=== PATIENT | female | born 1970 | race Caucasian/White ===

== ENCOUNTER 2024-09-11 21:38 | Emergency (ER) | payer OTHER, SELFPAY ==
--- NOTE | ~2024-09-11 | CT_ITS ---
CLINICAL HISTORY: sudden onset dizziness CT head without contrast Comparison: None Findings: No intracranial mass, midline shift, hydrocephalus, or acute hemorrhage. Visualized paranasal sinuses and mastoid air cells appear clear. No acute skull fracture. 6 mm radiopaque density identified over the anterior aspect of the left globe. Punctate 1 mm radiopaque density identified over the soft tissues anteriorly at the midline near the frontonasal suture. Impression: 1. No acute intracranial abnormality. No acute intracranial hemorrhage. CT angiography head and neck with contrast. 3-D postprocessing Comparison: None Findings: The visualized portions of the bilateral common carotid arteries and cervical portions of the internal carotid arteries appear patent without hemodynamically significant the origin of the right common carotid artery is obscured by artifact related to dense adjacent venous contrast. stenosis. The vertebral arteries appear patent bilaterally at the level of the neck. No carotid or vertebral dissection is seen. There is no evidence of vasculitis. Motion limited evaluation of the bilateral lungs. Subtle reticulonodular densities within the right upper lobe are not excluded. The intracranial vertebrobasilar system appears patent. Cerebellar and posterior cerebral arteries are intact. Intracranial internal carotid arteries appear patent. Middle/anterior cerebral arteries also appear patent. No aneurysms or abrupt cutoffs visualized. Impression: 1. Patent bilateral carotid and vertebral arterial systems at the level of the neck without hemodynamically significant stenosis. 2. Patent anterior and posterior intracranial arterial circulation. No large vessel occlusion. This document has been electronically signed by: Andrew Ham MD on 09/12/2024 00:24:41
[2024-09-11 21:51] VITALS: BP 130/70; BP 91/60; PULSE 90; PULSE 93; RESP 18; TEMP 36.8; O2SAT 100; O2SAT 94; BMI 39.9
[2024-09-11 22:04] LABS: MANUAL DIFF FLAG NO
--- NOTE | 2024-09-11 22:04 | ECG_ITS ---
Test Reason : SYNCOPE Blood Pressure : */* mmHG Vent. Rate : 85 BPM Atrial Rate : 85 BPM P-R Int : 158 ms QRS Dur : 86 ms QT Int : 400 ms P-R-T Axes : 34 38 35 degrees QTcB Int : 476 ms Normal sinus rhythm Cannot rule out Anterior infarct , age undetermined Nonspecific ST and T wave abnormality Abnormal ECG No previous ECGs available Referred By: Myrtle Marks Electronically Signed By: FABIÁN ACEVEDO
[2024-09-11 22:06] LABS: Basophils Percent Auto 0.2 % (0-2); Eosinophils Percent Auto 0.4 % (0-4); Hematocrit 38.5 % (37.0-47.0); Imm Gran Abs Auto 0.03 X10*3/uL (0.00-0.03); Imm Gran Pct Auto 0.3 % (0.0-0.4); Lymphocytes Absolute Auto 1.4 X10*3/uL (1.2-4.9); Lymphocytes Percent Auto 14.7 % (20-40); Mean Corpuscular HGB Conc 33.8 g/dl (31.0-35.0); Mean Corpuscular Volume 82.8 fL (80.0-98.0); Mean Platelet Volume 9.5 fL (9.4-12.3); Monocytes Absolute Auto 0.5 X10*3/uL (0.1-1.2); Monocytes Percent Auto 4.9 % (2-11); Neutrophils Absolute Auto 7.7 x10*3/uL (2.0-8.3); Neutrophils Percent Auto 79.5 % (45-73); Platelet Count 356 X10*3/uL (160-400); Red Blood Count 4.65 X10*6/uL (4.20-5.50); Red Cell Distribution Width 13.7 % (11.0-16.0); White Blood Count 9.6 X10*3/uL (4.8-10.8)
[2024-09-11] MEDS: ondansetron HCL 4 MG/2 ML VIAL IVPUSH (22:06)
[2024-09-11] MEDS: 0.9 % Sodium Chloride 1,000 ML 999 ML IVCONT (22:08)
[2024-09-11 22:19] LABS: Alanine Aminotransferase 20 U/L (0-31); Albumin Level 4.2 g/dL (3.5-5.0); Alkaline Phosphatase 88 U/L (39-117); Anion Gap 14 (12-20); Aspartate Amino Transferase 22 U/L (5-31); Bilirubin Total 0.3 mg/dL (0.0-1.0); Blood Urea Nitrogen 19 mg/dL (9-16); Calcium 9.1 mg/dL (8.4-10.2); Carbon Dioxide 20 mmol/L (22-29); Chloride 109 mmol/L (96-108); Creatinine Clr Calc Pharmacy 90.8; Estimated Glomerular Filt Rate > 60; Glucose Random 161 mg/dL (60-115); Lipase 21 U/L (8-78); Magnesium 2.1 mg/dL (1.6-2.6); Sodium 139 mmol/L (135-145)
--- NOTE | 2024-09-11 22:22 | ED.DIZZY ---
HPI - Dizziness General Chief Complaint: Syncope Stated Complaint: syncope, loc, vomiting, no thinners Time Seen by Provider: 09/11/24 21:56 Source: patient and EMS Mode of arrival: EMS Limitations: no limitations History of Present Illness ED Provider: Dr. Myrtle Marks HPI Narrative: Patient comes to the emergency room complaining of a syncopal/near syncopal episode. Patient states that she was in a restaurant with family. Patient states that she was cutting the cake for everybody, when she has sudden onset of dizziness, nausea, lightheadedness. Patient states that she started becoming very nauseous, she is not sure if she passed out. Patient states that she remembers things but thought that she was on a dream but was not sure. Patient states it was a very strange sensation. Patient states that she vomited at a restaurant, was very nauseous throughout the right to the hospital. Started vomiting again on arrival. Patient states that she was able to get up from the floor and walked towards the stretcher and get on it. Patient denies any headache, denies any blood thinners, denies falling on her head. Patient states that she takes medication for cardiomyopathy status which has resolved. Patient states that other than that she has no other past medical history. Patient denies any fever or chills. Denies any exposure to sick people to her knowledge Related Data Allergies Allergy/AdvReac Type Severity Reaction Status Date / Time No Known Allergies Allergy Verified 09/11/24 21:55 Review of Systems Review of Systems: Constitutional : No Weight loss, No Fever, No Chills, No Night Sweats, No Fatigue, No Malaise ENT/Mouth : No Hearing loss, No Ear Pain, No Nasal Congestion, No Sinus Pain, No Hoarseness, No sore throat, No Rhinorrhea, No Swallowing Difficulty Eyes: No Eye Pain, No Swelling, No Redness, No Foreign Body, No Discharge, No Vision Changes Cardiovascular : No Chest Pain, No SOB, No Dyspnea on Exertion, No Orthopnea, No Edema, No Palpitations Respiratory : No Cough, No Sputum, No Wheezing, No Smoke Exposure, No Dyspnea Gastrointestinal : Denies nausea or vomiting, No Diarrhea, No Constipation, No abdominal Pain, No Hematochezia, No Melena Genitourinary : no irregular bleeding, No Dysuria, No Urinary Frequency, No Hematuria, No Urinary Incontinence, No Urgency, No Flank Pain, No Urinary Flow Changes, No Hesitancy Musculoskeletal : No joint pain, No Myalgias, No Joint Swelling Skin : No Skin Lesions, No rash Neuro : No Weakness, No Numbness, No Paresthesias, complaining of a syncopal/near syncopal episode, No Dizziness, No Headache Psych : No Anxiety/Panic, No Depression, No SI/HI/AH/VH, No Social Issues, Heme/Lymph: No Bruising, No Bleeding,No Lymphadenopathy Endocrine : No Polyuria, No Polydipsia, No Temperature Intolerance [facility] Social History Social History Alcohol intake: current Alcohol intake frequency: holidays/special occasions only Smoked in Last 30 Days: No Use of substances other than those prescribed or required for medical reasons: No Advance Directives: Yes Advance Directives Information Provided: No Advance Directives on File: No Do you have a plan to hurt others: No Plan Physical Exam Vital Signs: Vital Signs: Last Vital Signs Temp 98.0 F 09/11/24 23:54 Pulse 75 09/11/24 23:54 Resp 16 09/11/24 23:54 BP 114/64 09/11/24 23:54 Pulse Ox 96 09/11/24 23:54 O2 Del Method Room Air 09/11/24 23:54 BMI result Body Mass Index 39.9 Const: Other: Appearance: Alert. Oriented X3. No acute distress. Eyes: Pupils equal, round and reactive to light. ENT: Pharynx normal. Neck: Normal inspection. Neck supple. No lymph nodes noted. No crepitus CVS: Normal heart rate and rhythm. Pulses normal. Normal S1 and S2 Respiratory: No respiratory distress. Breath sounds normal. No Wheezing. No rales Abdomen: Soft and nontender. No rigidity. No distention. Skin: Skin warm and dry. Normal skin color. Normal skin turgor. Extremities: No lower extremity edema. No Lacerations. No Rash Neuro: Oriented X 3. No motor deficit. No sensory deficit. Moving all extremities. No slurred speech. CN 2 through 12 grossly intact Psych: calm, cooperative, normal affect Course Course Course Narrative: On arrival, patient actively vomiting. Patient receiving IV fluids and Zofran, shortly after patient feeling much better. All of patient's labs and imaging pending Medications Administered Discontinued Medications Generic Name Dose Route Start Last Admin Trade Name Freq PRN Reason Stop Dose Admin Sodium Chloride 1,000 mls @ 999 mls/hr 09/11/24 22:00 09/11/24 23:37 Ns IVCONT 09/11/24 23:00 Infused .Q1H1M ONE Infusion Iohexol 75 ml 09/11/24 23:29 09/11/24 23:30 Iohexol 350 Mg/Ml 100 Ml Infus..Btl IV 09/11/24 23:30 75 ml ONCE ONE Administration Meclizine HCl 50 mg 09/11/24 22:23 09/11/24 23:36 Meclizine Hcl 25 Mg Tablet PO 09/11/24 22:24 50 mg ONCE ONE Administration Ondansetron HCl 4 mg 09/11/24 21:59 09/11/24 22:06 Ondansetron Hcl 4 Mg/2 Ml Vial IVPUSH 09/11/24 22:00 4 mg ONCE ONE Administration Medical Decision Making Medical Decision Making [facility] Narrative: My interpretation of EKG: Sinus rhythm, heart rate 85, no ST segment depression or elevation, no T-wave inversion, QTC 76 My interpretation of hematology: No obvious abnormality. Normal white blood cell count hemoglobin hematocrit and platelets, D-dimer negative, chemistry shows a slightly decreased bicarb, normal LFTs, ETOH negative, serology negative for influenza COVID and RSV. Patient's troponin x2 negative, urinalysis negative for UTI, U tox positive for THC, negative for alcohol CTA scan of the brain and neck negative Orthostatic vitals negative Patient was able to walk around the emergency room, steady gait, asymptomatic. When patient came in, patient's blood pressure was in 90s, patient likely had a vasovagal event. I discussed with the patient to check her blood pressure at home and either in a pharmacy or a [facility]. It is possible that her blood pressure medications might be a bit on the higher side. Patient states that she usually has a good pressure. At this time, we will not change any of her meds. Patient's blood pressure 114/64, pulse 75, respirations 16, oxygen saturation 96% on room air Differential Diagnosis Differential Diagnoses: The differential diagnosis associated with the presentation includes (Vasovagal syncope, PE, ACS) Admission/Observation Consideration of admission/observation: Escalation of care including admission/observation considered Lab Data [facility] Lab Attestation statement: I reviewed the patient's lab results. 09/11/24 21:59 09/11/24 21:59 Labs: Lab Results 09/11/24 09/11/24 09/11/24 Range/Units 21:59 22:26 22:27 WBC 9.6 (4.8-10.8) X10*3/uL RBC 4.65 (4.20-5.50) X10*6/uL Hgb 13.0 (12.0-16.0) g/dl Hct 38.5 (37.0-47.0) % MCV 82.8 (80.0-98.0) fL MCH 28.0 (27.0-33.0) pg MCHC 33.8 (31.0-35.0) g/dl RDW 13.7 (11.0-16.0) % Plt Count 356 (160-400) X10*3/uL MPV 9.5 (9.4-12.3) fL Immature Gran % (Auto) 0.3 (0.0-0.4) % Neut % (Auto) 79.5 H (45-73) % Lymph % (Auto) 14.7 L (20-40) % [place] % (Auto) 4.9 (2-11) % Eos % (Auto) 0.4 (0-4) % Baso % (Auto) 0.2 (0-2) % Lymph # (Auto) 1.4 (1.2-4.9) X10*3/uL [place] # (Auto) 0.5 (0.1-1.2) X10*3/uL Eos # (Auto) 0.0 (0.0-0.4) X10*3/uL Baso # (Auto) 0.0 (0.0-0.2) X10*3/uL Abs Immat Gran (auto) 0.03 (0.00-0.03) X10*3/uL Absolute Neuts (auto) 7.7 (2.0-8.3) x10*3/uL Absolute Nucleated RBC 0.000 (0.0-0.012) X10*3/uL Nucleated RBC % (auto) 0.0 (0.0-0.2) /100WBC PT 10.8 L (10.9-12.4) SEC INR 0.9 (0.9-1.1) D-Dimer High Sensitivty 178 NG/ML Sodium 139 (135-145) mmol/L Potassium 4.0 (3.3-5.1) mmol/L Chloride 109 H (96-108) mmol/L Carbon Dioxide 20 L (22-29) mmol/L Anion Gap 14 (12-20) BUN 19 H (9-16) mg/dL Creatinine 0.79 (0.5-1.4) mg/dL Estim Creat Clear Calc 90.8 Estimated GFR > 60 Random Glucose 161 H (60-115) mg/dL Calcium 9.1 (8.4-10.2) mg/dL Magnesium 2.1 (1.6-2.6) mg/dL Total Bilirubin 0.3 (0.0-1.0) mg/dL AST 22 (5-31) U/L ALT 20 (0-31) U/L Alkaline Phosphatase 88 (39-117) U/L Troponin I High Sens < 2.7 (<3.5-17.0) ng/L Total Protein 8.0 (6.5-8.0) g/dL Albumin 4.2 (3.5-5.0) g/dL Lipase 21 (8-78) U/L Urine Color Urine Appearance Urine pH (5.0-9.0) Ur Specific [place] (1.005-1.025) Urine Protein (Neg-Trace) mg/dL Urine Glucose (UA) (Negative) mg/dL Urine Ketones (Negative) mg/dL Urine Blood (Negative) Urine Nitrite (Negative) Ur Leukocyte Esterase (Negative) Urine RBC (0-2) /HPF Urine WBC (0-5) /HPF Ur Squamous Epith Cells (0-2) /HPF Urine Bacteria (None Seen) Hyaline Casts (0-2) /LPF Urine Opiates Screen (Not Detect) Ur Buprenorphine Scrn (Not Detect) ng/mL Ur Oxycodone Screen (Not Detect) ng/mL Urine Methadone Screen (Not Detect) ng/mL Urine Fentanyl Screen (Not Detect) Ur Barbiturates Screen (Not Detect) Ur Phencyclidine Scrn (Not Detect) Ur Amphetamines Screen (Not Detect) U Benzodiazepines Scrn (Not Detect) Urine Cocaine Screen (Not Detect) U Marijuana (THC) Screen (Not Detect) Ethyl Alcohol < 10 mg/dL Influenza Type A (PCR) NEGATIVE (Negative) Influenza Type B (PCR) NEGATIVE (Negative) RSV RNA Qual (PCR) NEGATIVE (Negative) SARS-CoV-2 RNA (RT-PCR) NEGATIVE (Negative) 09/11/24 Range/Units 22:57 WBC (4.8-10.8) X10*3/uL RBC (4.20-5.50) X10*6/uL Hgb (12.0-16.0) g/dl Hct (37.0-47.0) % MCV (80.0-98.0) fL MCH (27.0-33.0) pg MCHC (31.0-35.0) g/dl RDW (11.0-16.0) % Plt Count (160-400) X10*3/uL MPV (9.4-12.3) fL Immature Gran % (Auto) (0.0-0.4) % Neut % (Auto) (45-73) % Lymph % (Auto) (20-40) % [place] % (Auto) (2-11) % Eos % (Auto) (0-4) % Baso % (Auto) (0-2) % Lymph # (Auto) (1.2-4.9) X10*3/uL [place] # (Auto) (0.1-1.2) X10*3/uL Eos # (Auto) (0.0-0.4) X10*3/uL Baso # (Auto) (0.0-0.2) X10*3/uL Abs Immat Gran (auto) (0.00-0.03) X10*3/uL Absolute Neuts (auto) (2.0-8.3) x10*3/uL Absolute Nucleated RBC (0.0-0.012) X10*3/uL Nucleated RBC % (auto) (0.0-0.2) /100WBC PT (10.9-12.4) SEC INR (0.9-1.1) D-Dimer High Sensitivty NG/ML Sodium (135-145) mmol/L Potassium (3.3-5.1) mmol/L Chloride (96-108) mmol/L Carbon Dioxide (22-29) mmol/L Anion Gap (12-20) BUN (9-16) mg/dL Creatinine (0.5-1.4) mg/dL Estim Creat Clear Calc Estimated GFR Random Glucose (60-115) mg/dL Calcium (8.4-10.2) mg/dL Magnesium (1.6-2.6) mg/dL Total Bilirubin (0.0-1.0) mg/dL AST (5-31) U/L ALT (0-31) U/L Alkaline Phosphatase (39-117) U/L Troponin I High Sens (<3.5-17.0) ng/L Total Protein (6.5-8.0) g/dL Albumin (3.5-5.0) g/dL Lipase (8-78) U/L Urine Color Yellow Urine Appearance Clear Urine pH 5.5 (5.0-9.0) Ur Specific [place] 1.025 (1.005-1.025) Urine Protein 30 (1+) H (Neg-Trace) mg/dL Urine Glucose (UA) Negative (Negative) mg/dL Urine Ketones Trace (Negative) mg/dL Urine Blood Negative (Negative) Urine Nitrite Negative (Negative) Ur Leukocyte Esterase Moderate (2+) H (Negative) Urine RBC 0-2 (0-2) /HPF Urine WBC 6-10 (0-5) /HPF Ur Squamous Epith Cells 3-5 (0-2) /HPF Urine Bacteria Trace (None Seen) Hyaline Casts 0-2 (0-2) /LPF Urine Opiates Screen Not Detected (Not Detect) Ur Buprenorphine Scrn Not Detected (Not Detect) ng/mL Ur Oxycodone Screen Not Detected (Not Detect) ng/mL Urine Methadone Screen Not Detected (Not Detect) ng/mL Urine Fentanyl Screen Not Detected (Not Detect) Ur Barbiturates Screen Not Detected (Not Detect) Ur Phencyclidine Scrn Not Detected (Not Detect) Ur Amphetamines Screen Not Detected (Not Detect) U Benzodiazepines Scrn Not Detected (Not Detect) Urine Cocaine Screen Not Detected (Not Detect) U Marijuana (THC) Screen POSITIVE H (Not Detect) Ethyl Alcohol mg/dL Influenza Type A (PCR) (Negative) Influenza Type B (PCR) (Negative) RSV RNA Qual (PCR) (Negative) SARS-CoV-2 RNA (RT-PCR) (Negative) Independent Interpretation I performed an independent interpretation of an: CT Scan Radiology Impression Discussion of test interpretation with radiology: I have reviewed the radiologist's reading. Radiologist Impression: The visualized portions of the bilateral common carotid arteries and cervical portions of the internal carotid arteries appear patent without hemodynamically significant the origin of the right common carotid artery is obscured by artifact related to dense adjacent venous contrast. stenosis. The vertebral arteries appear patent bilaterally at the level of the neck. No carotid or vertebral dissection is seen. There is no evidence of vasculitis. Motion limited evaluation of the bilateral lungs. Subtle reticulonodular densities within the right upper lobe are not excluded. The intracranial vertebrobasilar system appears patent. Cerebellar and posterior cerebral arteries are intact. Intracranial internal carotid arteries appear patent. Middle/anterior cerebral arteries also appear patent. No aneurysms or abrupt cutoffs visualized. Impression: 1. Patent bilateral carotid and vertebral arterial systems at the level of the neck without hemodynamically significant stenosis. 2. Patent anterior and posterior intracranial arterial circulation. No large vessel occlusion. Independent Historian Clinical information obtained from an independent historian. History obtained from or confirmed by: EMS Critical Care Time Critical Care Time Critical Care Time: Yes Total Critical Care Time: 60 Attestation: I have personally provided critical care time. Time includes review of lab data, radiology results, discussion with consultants, and monitoring for potential decompensation. Intervention performed as documented. Discharge Plan Discharge Clinical Impression: Vasovagal syncope Patient Disposition: Home, Self-Care Instructions: Near Syncope (ED) Additional Instructions: Please follow-up with your primary care physician tomorrow. If you have any worsening or new symptoms, please return to the emergency room or call 911 Print Language: Azeri
[2024-09-11 22:42] LABS: Influenza A PCR NEGATIVE (Negative); Influenza B PCR NEGATIVE (Negative); Resp Syncy Virus RNA Qual PCR NEGATIVE (Negative); SARS COV2 PCR INHOUSE NEGATIVE (Negative)
[2024-09-11 22:45] LABS: Ethanol < 10 mg/dL
[2024-09-11 22:55] LABS: D Dimer High Sensitivity 178 NG/ML
[2024-09-11 22:55] LABS: INTERNATIONAL NORM RATIO 0.9 (0.9-1.1); Prothrombin Time 10.8 SEC (10.9-12.4)
--- NOTE | 2024-09-11 23:02 | MHC.EDTECH ---
pt ambulated to and from bathroom with a steady gait and no assistance needed
[2024-09-11 23:03] LABS: Appearance Urine Clear; Color Urine Yellow; Glucose Urine UA Negative (Negative); Leukocyte Esterase Urine Moderate (2+) (Negative); Nitrite Urine Negative (Negative); PH 5.5 (5.0-9.0); Specific Gravity - Urine 1.025 (1.005-1.025); UMIC TRIGGER UACC YES; Urine Blood Negative (Negative); Urine Ketones Trace mg/dL (Negative); Urine Protein 30 (1+) mg/dL (Neg-Trace)
[2024-09-11 23:05] VITALS: BP 113/60; PULSE 77
[2024-09-11 23:06] VITALS: BP 121/63; PULSE 80
[2024-09-11 23:07] VITALS: BP 117/68; PULSE 84
[2024-09-11 23:12] LABS: Amphetamine Screen Urine Not Detected (Not Detect); Barbiturates, Urine Not Detected (Not Detect); Benzodiazepines Screen Urine Not Detected (Not Detect); Buprenorphine Scr Not Detected (Not Detect); Cannabinoid Screen Urine POSITIVE (Not Detect); Cocaine Screen Urine Not Detected (Not Detect); Fentanyl, urine Not Detected (Not Detect); Methadone Screen, Urine Not Detected (Not Detect); Opiate Screen Urine Not Detected (Not Detect); Oxycodone Screen Urine Not Detected (Not Detect); Phencyclidine Screen Urine Not Detected (Not Detect)
[2024-09-11 23:21] LABS: Bacteria Urine Trace (None Seen); Hyaline Casts Urine 0-2 /LPF (0-2); RBC Urine 0-2 /HPF (0-2); UACC Culture Trigger YES
[2024-09-11] MEDS: iohexoL 350 MG/ML 100 ML INFUS..BTL 75 ML IV (23:30)
[2024-09-11] MEDS: Meclizine HCl 25 MG TABLET 50 MG PO (23:36)
[2024-09-11 23:54] VITALS: BP 114/64; PULSE 75; RESP 16; TEMP 36.7; O2SAT 96
--- NOTE | 2024-09-11 23:55 | MHC.EDTECH ---
This pct assumed care of Patient at 2315,vitals taken ,Patient just came back from bathroom ,no apparent distress noted ,Plan of care continue .
[2024-09-12 01:40] LABS: Troponin-I High Sensitivity < 2.7 ng/L (<3.5-17.0)
[2024-09-12 02:16] VITALS: BP 135/55; PULSE 75; RESP 20; TEMP 37.7; O2SAT 95
[2024-09-12 02:40] VITALS: BP 135/55; PULSE 75; RESP 20; TEMP 37.4; O2SAT 95
[2024-09-12] MEDS: Prochlorperazine Edisylate 10 MG/2 ML VIAL IVPUSH (02:43)
== END 2024-09-12 02:45 | disposition home or self-care (01) ==
PROVIDERS: Emergency Provider Emergency Medicine; PCP Internal Medicine
DX: R55 Syncope and collapse (principal); Z03.818 Encounter for observation for suspected exposure to other biological agents ruled out; R11.2 Nausea with vomiting, unspecified; Z79.899 Other long term (current) drug therapy
CPT/HCPCS: 0241U; 36415; 70496; 70498; 80053; 80307; 81001; 83690; 83735; 84484; 85025; 85379; 85610; 87086; 87147; 93005; 96361; 96374; 96375; 99285; J0737; J2405; Q9967

== ENCOUNTER → 2024-09-11 22:04 | Outpatient (BNV) | payer OTHER, SELFPAY | PROVIDERS: Emergency Provider Emergency Medicine; PCP Internal Medicine; Visit Provider Internal Medicine | DX: R94.31 Abnormal electrocardiogram [ECG] [EKG] (principal); R55 Syncope and collapse | CPT/HCPCS: 93010 ==

== ENCOUNTER → 2024-09-11 22:23 | Outpatient (BNV) | payer OTHER, SELFPAY | PROVIDERS: Emergency Provider Emergency Medicine; PCP Internal Medicine; Visit Provider Radiology Diagnostic Radiology | DX: R42 Dizziness and giddiness (principal) | CPT/HCPCS: 70496; 70498 ==

== ENCOUNTER 2025-04-07 14:18 | Outpatient (AMB) | payer OTHER, SELFPAY ==
--- OUTSIDE RECORDS SUMMARY | 2025-04-07 18:03 | XMS_ITS | Clinical Summary ---
Author Organization [facility] Address [address] [facility] [address] [place] [id number] Phone Care Team Providers Care Tube Fitter Name Role Phone Keya Sage MD Unavailable [phone] Shemar Mancia PA-C Primary Care Provider [phone] Allergies No known active allergies Medications levonorgestreL (MIRENA) 21 mcg/24 hr (8 yrs) 52 mg intrauterine device 1 Device by Intrauterine route. Placed 03/02/[address] Betty Bowles Active olmesartan (BENICAR) 20 mg tabletIndication s:Medication refill TAKE 1 TABLET BY MOUTH EVERY DAY 90 tablet 3 5 Active metoprolol succinate (TOPROL-XL) 25 MG 24 hr tabletIndication s:Medication refill TAKE 1 TABLET BY MOUTH EVERY DAY 90 tablet 3 5 Active Active Problems Problem Noted Date Diagnosed Date Liver lesion 09/17/2024 Vasovagal syncope 09/17/2024 Tinnitus of both ears 09/17/2024 Encounter for weight management 09/17/2024 Gastroesophageal reflux disease without esophagi tis 03/10/2020 Hypertension 06/30/2019 Assessment & Plan (07/05/2022 11:09 AM EST): Her blood pressure is well controlled at 118/70 she will continue her metoprolol and olmesartan and get her renal panel done. Weekly Lung nodule 11/24/2018 Assessment & Plan (10/29/2024 9:40 AM EDT): 54-year-old never smoker with no significant risk factors or exposure history with approximately 7 years of known incidental multiple pulmonary nodules. Largest nodule reported in [address] last month with right lower lobe nodule which most certainly appears to be an intraparenchymal lymph node, measured at 7 mm. Whether this represents the same nodule and growth or new finding is unclear. Prior images are not available. I reassured her that all of the findings on the current CT including the atelectasis are all benign findings. None of her nodules demonstrate any significant risky characteristics. RECOMMENDATIONS: Request imaging from May [address] [facility]. If on comparison current nodules are essentially unchanged, no further follow-up is required. If no available comparisons, a repeat CT is warranted. The largest nodule measured is 7 cm is clearly an intraparenchymal lymph node which is a benign finding. And therefore a 12-month follow-up CT would therefore be reasonable. Sanjana agrees with the current approach. I will reach out to her after receiving the comparison films and if indicated, can always cancel the follow-up CT and visit. Mixed hyperlipidemia 11/24/2018 Anatomical narrow angle glaucoma 11/24/2018 Cardiomyopathy, unspecified 03/18/2018 Assessment & Plan (07/05/2022 11:08 AM EST): Reviewed the record and it always stays in nonischemic cardiomyopathy. I discussed with her and decided to proceed with a myocardial perfusion imaging just to make sure she does not have any coronary artery disease. Resolved Problems Problem Noted Date Diagnosed Date Resolved Date Breakthrough bleeding associ ated with intrauterine device (IUD) 08/24/2024 09/17/2024 Assessment & Plan (08/24/2024 4:33 PM EST): -Reviewed possible etiologies of breakthrough bleeding with IUD in place including atrophy, endometrial or endocervical polyp, and premalignancy or malignancy of the endometrium or cervix. -TVUS ordered to evaluate endometrial stripe. -Pap neg/neg 2019. No cervical pathology visualized today. -If no further workup is indicated, I will call with results. If endometrial sampling is indicated, RTC for discussion and procedure. -Counseled that even if no further workup is indicated at this time, she should call with persistent bleeding as further evaluation would be warranted. Vulvar burning 03/26/2024 09/17/2024 Overview (03/26/2024): When in contact with urine only Assessment & Plan (03/26/2024 4:10 PM EDT): Feeling better with the antifungal treatment, so I recommend liberal application of a layer of Vaseline petroleum jelly or something similar prior to voiding, hold labia open so urine does not come into contact with skin. Expect this to resolve within a few days with treatment of suspected yeast infection Abnormal uterine bleeding du e to endometrial polyp 03/02/2022 05/10/2023 Family history of cancer 03/02/2022 Overview (03/02/2022): Mother with uterine, colon, breast cancer Irregular bleeding 01/09/2022 Assessment & Plan (01/09/2022 11:52 AM EDT): We discussed history of current episode of prolonged vaginal bleeding and possible differential diagnoses including perimenopause, structural reasons such as fibroids/polyps, thyroid/pituitary disorders, endometrial hyperplasia/malignancy. Will check TSH/prl/SHG. Sanjana has annual coming up in February with Dr. Sage and was planning to request that Mirena be replaced as she is still nervous about . We discussed that though is unlikely Mirena may be appropriate strategy to manage prolonged bleeding if uterine pathology is ruled out. Hiatal hernia 03/10/2020 09/17/2024 Diverticulosis 03/10/2020 09/17/2024 Right upper quadrant abdominal pain 10/02/2019 05/10/2023 Assessment & Plan (10/02/2019 1:01 PM EDT): Will f/u with Dr. Valente's office regarding need for sooner consult and evaluation given persistent RUQ pain x 7 mo. Liver mass 11/24/2018 09/17/2024 Uses intrauterine device for control 12/25/2017 07/20/2021 Overview (12/25/2017): Dexter 06/2015 Assessment & Plan (10/02/2019 1:00 PM EDT): Consider leaving Dexter in for 7 years given contraceptive effectiveness; will discuss with MUSHROOM GROWING SUPERVISOR. Chest pain 12/17/2017 09/17/2024 Assessment & Plan (07/05/2022 11:09 AM EST): She has history of atypical chest pains in past her left ventricular ejection fraction was found to be mildly impaired. I do not see any cardiac catheterization done ever for a final resolution of the etiology of the cardiomyopathy. We will do at least a myocardial perfusion imaging stress test Family history of premature CAD 12/17/2017 09/17/2024 Obesity (BMI 30-39.9) 12/17/20172024 Encounter for preoperative s creening laboratory testing for COVID-19 virus Encounters Date Type Department Care Team Description 03/29/2025 Orders Only [facility] Family Medicine [address] [place] [address] Provider, MD Ayaz 02/17/2025 9:20 AM EDT - 02/17/2025 11:59 PM EDT Hospital Encounter [facility] - [address] [place] [address] Nahid Rider MD Discharge Disposition: Home or Self Care 02/17/2025 Ancillary Orders [facility] Internal Medicine [address] [place] [address] Shemar Mancia PA-C Breast screening (Primary Dx) 01/06/2025 Ancillary Orders [facility],Outside Imaging [address] [place] [address] Antwan, MD Antwan 01/05/2025 8:51 AM EDT - 01/05/2025 11:59 PM EDT Hospital Encounter [facility], [address] [address] Shemar Mancia PA-C Discharge Disposition: Home or Self Care 10/05/2024 Procedure Pass [facility], [address] [address] 08/24/2024 Procedure Pass [facility] - [address] [place] [address] from Last 3 Months Immunizations Immunization Administration Dates Next Due COVID-19 (Pre-05/13) Tiff Vaccine, rS-Ad26, PF 09/29/2020 INFLUENZA, SPLIT VIRUS, TRIVALENT PF 06/17/2024 Influenza Quadrivalent MDCK Preservative Free IM 05/17/2023,04/25/2022,05/08/2018 Influenza Quadrivalent Preservative Free IM 03/23,04/22/2019,05/16/2016 Influenza, Unspecified Formulation 04/21/2019, Family History Medical History Relation Comments Heart disease Father s/p stent Hyperlipidemia Father Cancer Maternal Grandfather Glaucoma Maternal Grandmother Breast cancer Mother Cancer Mother Colon Cancer & U terine Cancer Colon cancer Mother Uterine cancer Mother COPD Paternal Grandfather Heart attack Paternal Grandfather No Known Problems Sister Lung cancer Neg Hx Relation Status Comments Daughter Alive Father Alive Maternal Grandfather (Age 77) Maternal Grandmother (Age 91) Mother Alive Paternal Grandfather (Age 65) Paternal Grandmother (Age 89) Sister Alive Son Alive Social History Tobacco Use Types Packs/Day Years Used Date Smoking Tobacco: Never Passive Smoke Exposure: Never Smokeless Tobacco: Never Tobacco Cessation:Counseling Given: Not Answered Alcohol Use Standard Drinks/Week Comments Not Currently 0 (1 standard drink = 0.6 oz pur e alcohol) 1-2 drinks, monthly or less Child or Family Care Answer Date Record ed Do you have problems with on e of the following making it difficult for you to work, study, or receive health care? No 02/23/2025 Education Answer Date Recorded Are you interested in help w ith more adult education (for example, completing high school, GED, job training, learning the [place] language, technical skills, or developing parenting skills)? No 02/23/2025 Are you concerned about learning? Not on file 02/23/2025 No 02/23/2025 Yes 02/23/2025 Food Answer Date Recorded Within the past 6 months we worried whether our food would run out before we got money to buy more. Never True 02/23/2025 Within the past 6 months the food we bought just didn't last and we didn't have enough money to get more. Never True Residential Stability Answer Date Recor ded What is your housing situation today? I have carisa sing 02/23/2025 How many times have you move d in the past 12 months? Zero (I did not move) 02/23/2025 Paying for Meds Answer Date Recorded Do you have trouble paying for medicines? No 02/23/2025 Paying Utility Bills Answer Date Record ed Do you have trouble paying your heating or elect ricity bill? No 02/23/2025 Transportation Answer Date Recorded Has the lack of transportati on kept you from medical appointments or from getting medications? No 02/23/2025 Digital Access Answer Date Recorded No 02/23/2025 Yes 02/23/2025 Do you have reliable internet access at home? Ye s 02/23/2025 Do you have a device (e.g., phone, tablet, computer) with a working camera? Yes 02/23/2025 Intimate Partner Violence Answer Date R ecorded Denied Basic Needs Not on file 09/14/2024 In the past 12 months have y ou been in a relationship with a person who hurts, threatens, or tries to control you? No 09/14/2024 Worried food would run out Not on file 09/14 In the past 12 months have y ou been in a relationship with a person who hurts, threatens, or tries to control you? 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 Not on file Not on file Not on file Last Filed Vital Signs Vital Sign Reading Time Taken Comments Blood Pressure 132/78 10/29/2024 8:53 AM EDT Pulse 71 10/29/2024 8:53 AM EDT Temperature 36.3 C (97.4 F) 10/29/2024 8:53 AM EDT Respiratory Rate 16 09/17/2024 9:36 AM EST Oxygen Saturation 97% 10/29/2024 8:53 AM EDT Inhaled Oxygen Concentration - - Weight 90.7 kg (200 lb) 12/30/2024 1:28 PM EDT Height 160 cm (5' 3 ) 12/30/2024 1:28 PM EDT Body Mass Index 35.43 12/30/2024 1:28 PM EDT Plan of Treatment Upcoming Encounters Date Type Department Care Team (Late st Contact Info) Description 07/19/2025 7:20 AM EST Office Visit [facility] Internal Medicine [address] [place] [address] Shemar Mancia PA-C [address] [place] [address] [email or web address] 01/06/2026 7:40 AM EDT Office Visit [facility] [address] [place] [address] 3rd Floor, [address] [place] [phone] Job Sheikh MD [address] [facility], [address] [place] [address] [phone] [email or web address] Health Maintenance Due Date Last Done Comments Adult Td,Tdap Booster 1970 HEPATITIS C SCREENING 01/18/1986 HIV ONE-TIME SCREENING (18-65 YEARS) 01/18/1986 COLOGUARD 01/18/2013 FIT TEST 01/18/2013 FOBT 01/18/2013 SIGMOIDOSCOPY 01/18/2013 VIRTUAL COLONOSCOPY 01/18/2013 PNEUMOCOCCAL VACCINES (50+ years) (1 of 1 - PCV) 01/18/2018 ZOSTER VACCINES (1 of 2) 01/18/2018 COLONOSCOPY 01/26/2025 01/27/2020, 10/27/2014 COLORECTAL CANCER SCREENING 01/26/2025 INFLUENZA VACCINE (#1) 2025 , 05/17/2023, 04/25/2022, Additional history exists COVID-19 VACCINE ( season) 2025 05/26/2021, 09/29/2020 BLOOD PRESSURE 04/30/2025 10/29/2024 CREATININE LEVEL 01/04/2026 01/04/2025, , 09/10/2019, Additional history exists POTASSIUM LEVEL 01/04/2026 01/04/2025, 08/23, 09/10/2019, Additional history exists DEPRESSION SCREENING 02/23/2026 02/23/2025 MAMMOGRAM 02/17/2027 02/17/2025, 07/22, 09/28/2020, Additional history exists SCREENING FOR DIABETES 01/05/2028 01/04/2025 PAP SMEAR 09/01/2029 09/01/2024, 01/21, 02/19/2020, Additional history exists LIPID PANEL 01/04/2030 01/04/2025, 12/21, 09/10/2019, Additional history exists IUD 03/02/2030 03/02/2022 SMOKING STATUS SCREENING (Once After 26 Yrs) Completed 02/17/2025 HEPATITIS A VACCINES Aged Out No long er eligible based on patient's age to complete this topic HIB VACCINES Aged Out No longer eligi ble based on patient's age to complete this topic MENINGOCOCCAL VACCINES (ACWY) Aged Out No longer eligible based on patient's age to complete this topic MENINGOCOCCAL VACCINES (B) Aged Out N o longer eligible based on patient's age to complete this topic Medical Devices Implanted Type Area Lobby Concierge Device Identifier Shelf Expiration Date Model / Serial / Lot Device Contraceptive 52mg Iud Mirena - Must Order In Multiples Of 5 - [id number] Implanted:Qty: 1 on 03/02/2022 by Mamta Bowles MD at [facility] N/A: Uterus [employer] 05/21/2024 [id number] / / [id number] Procedures Procedure Name Priority Date/Time Associated Diagnosis Comments OUTSIDE PATHOLOGY Routine 03/26/2025 10: 50 AM EDT BI MAMMOGRAM SCREENING WITH TOMOSYNTHESIS WITH CAD (BILATERAL) Routine 02/17/2025 9:59 AM EDT Breast screening MRI ABDOMEN (LIVER) WITH AND WITHOUT CONTRAST Routine 01/05/2025 10:09 AM EDT Liver lesion LIPID PANEL Routine 01/04/2025 8:54 AM EDT Routine general medical examination at a health care facility COMPREHENSIVE METABOLIC PANEL Routine 01/04/2025 8:54 AM EDT Routine general medical examination at a health care facility PAP TEST Routine 09/01/2024 12:00 AM EST COLONOSCOPY FOR RESULT ENTRY ONLY Routine 01/27/2020 from Last 3 Months or Most Recently Relevant to Health Maintenance Results * Outside Pathology (03/26/2025 10:50 AM EDT) us Historical Provider PATHOLOGY ORDERABLES Edit ed Result - Final * BI MAMMOGRAM SCREENING WITH TOMOSYNTHESIS WITH CAD (BILATERAL) (02/17/2025 9:59 AM EDT) Anatomical Region Laterality Modality Breast Left, Breast Right, Breast Bilateral Bila teral Mammography 02/18/2025 12:4 5 PM EDT Impressions 02/18/2025 12:47 PM EDT No mammographic evidence of malignancy in either breast. Annual screening mammography is recommended. BI-RADS 1 NEGATIVE The patient will be notified of the results and recommendations. Narrative 02/18/2025 12:47 PM EDT BI MAMMOGRAM SCREENING WITH TOMOSYNTHESIS WITH CAD (BILATERAL) Additional patient information: Screening. COMPARISON: Comparison is made with relevant prior imaging. Breast composition: There are scattered areas of fibroglandular density. FINDINGS: No abnormal masses, suspicious calcifications, or other significant findings are identified mammographically in either breast. Procedure Note Tabitha Nunez MD - 02/18/2025 BI MAMMOGRAM SCREENING WITH TOMOSYNTHESIS WITH CAD (BILATERAL) Additional patient information: Screening. COMPARISON: Comparison is made with relevant prior imaging. Breast composition: There are scattered areas of fibroglandular density. FINDINGS: No abnormal masses, suspicious calcifications, or other significantfindings are identified mammographically in either breast. IMPRESSION: No mammographic evidence of malignancy in either breast. Annual screening mammography is recommended. BI-RADS 1 NEGATIVE The patient will be notified of the results and recommendations. us Shemar Mancia PA-C IMG MG EXAMS Final Result * MRI ABDOMEN (LIVER) WITH AND WITHOUT CONTRAST (01/05/2025 10:09 AM EDT) Anatomical Region Laterality Modality Abdomen Magnetic Resonan ce 01/12/2025 12:1 0 PM EDT Impressions 01/12/2025 12:31 PM EDT 1. Interval stability of a lesion within the left hepatic lobe, corresponding to a hemangioma. This is similar to prior examination. No new lesions are identified. 2. 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 Follow-up as per clinical discretion. 3. Cholecystectomy. Intrahepatic and extra hepatic bile duct dilatation could represent reservoir effect. No evidence of choledocholithiasis. 4. Renal cortical cysts. 5. Colonic diverticulosis. Narrative 01/12/2025 12:31 PM EDT MRI ABDOMEN (LIVER) WITH AND WITHOUT CONTRAST Referring clinician's provided indication for this examination in Epic: * Liver lesion, > 1cm, US nondiagnostic; lesion on spleen. TECHNIQUE: Multiplanar MR imaging of the abdomen was performed using T1, T2, fat saturated, and diffusion weighted techniques. Dynamic multiphase imaging was also performed after administration of an intravenous gadolinium contrast agent. COMPARISON: MRI abdomen dated October 01, 2024. Ultrasound abdomen dated September 10, 2019. FINDINGS: Devices/Tubes/Lines: None. Lower thorax: The heart size is normal without pericardial effusion. No esophageal or paraspinal abnormality. Dependent areas of atelectasis are identified within both lungs. Liver: The liver is of normal size, smooth in surface contour. There is redemonstration of a hemangioma identified within hepatic segment 2 measuring 3 x 24 mm, previously 30 mm in maximal dimension (image 19, series 4). No additional or new lesions are present. No new lesions are identified. No loss of signal is identified on opposed phase images. Mild central intrahepatic bile duct dilatation as before. Biliary: Surgically absent gallbladder. The extra hepatic common duct measures up to 11 mm, with tapering to the ampulla. No choledocholithiasis. This is similar to the prior examination. Spleen: No evidence of splenomegaly. There is a 13 x 14 mm hyperintense probable hemangioma identified within the medial aspect of the spleen (image 22, series 4), previously measuring 13 mm. No new lesions. Pancreas: No duct dilatation, mass lesions or adjacent inflammation. Adrenal Glands: No nodules or thickening. Kidneys/Ureters: No hydronephrosis, masses or perinephric collections. Multiple renal cysts. This includes a Bosniak type II cyst involving the right interpolar region measuring 15 mm (image 34, series 4). This demonstrates a nonenhancing septation. No ureteral dilation or focal lesion. Bowel: No mechanical bowel obstruction is present. No acute gastric or small bowel abnormality. Colonic diverticulosis. No adjacent inflammatory changes are present. The terminal ileum is normal. The appendix is nonvisualized. Peritoneum/Retroperitoneum: No masses, pneumoperitoneum, or fluid. Lymph Nodes: No lymphadenopathy. Vessels: No abdominal aortic aneurysm. Bones/Soft Tissues: No abdominal wall hernia. No masses or collections. Minor degenerative changes, no suspicious lesions. Procedure Note Nine, Braxton Chatterjee MD - 01/12/2025 MRI ABDOMEN (LIVER) WITH AND WITHOUT CONTRAST Referring clinician's provided indication for this examination in Epic: *Liver lesion, > 1cm, US nondiagnostic; lesion on spleen. TECHNIQUE: Multiplanar MR imaging of the abdomen was performed using T1,T2, fat saturated, and diffusion weighted techniques. Dynamic multiphaseimaging was also performed after administration of an intravenousgadolinium contrast agent. COMPARISON: MRI abdomen dated October 01, 2024. Ultrasound abdomen datedFebruary 2019. FINDINGS: Devices/Tubes/Lines: None. Lower thorax: The heart size is normal without pericardial effusion. Noesophageal or paraspinal abnormality. Dependent areas of atelectasis areidentified within both lungs. Liver: The liver is of normal size, smooth in surface contour. There isredemonstration of a hemangioma identified within hepatic segment 2measuring 3 x 24 mm, previously 30 mm in maximal dimension (image 19,series 4). No additional or new lesions are present. No new lesions areidentified. No loss of signal is identified on opposed phase images. Mildcentral intrahepatic bile duct dilatation as before. Biliary: Surgically absent gallbladder. The extra hepatic common ductmeasures up to 11 mm, with tapering to the ampulla. Nocholedocholithiasis. This is similar to the prior examination. Spleen: No evidence of splenomegaly. There is a 13 x 14 mm hyperintenseprobable hemangioma identified within the medial aspect of the spleen(image 22, series 4), previously measuring 13 mm. No new lesions. Pancreas: No duct dilatation, mass lesions or adjacent inflammation. Adrenal Glands: No nodules or thickening. Kidneys/Ureters: No hydronephrosis, masses or perinephric collections.Multiple renal cysts. This includes a Bosniak type II cyst involving theright interpolar region measuring 15 mm (image 34, series 4). Thisdemonstrates a nonenhancing septation. No ureteral dilation or focallesion. Bowel: No mechanical bowel obstruction is present. No acute gastric orsmall bowel abnormality. Colonic diverticulosis. No adjacent inflammatorychanges are present. The terminal ileum is normal. The appendix isnonvisualized. Peritoneum/Retroperitoneum: No masses, pneumoperitoneum, or fluid. Lymph Nodes: No lymphadenopathy. Vessels: No abdominal aortic aneurysm. Bones/Soft Tissues: No abdominal wall hernia. No masses or collections.Minor degenerative changes, no suspicious lesions. IMPRESSION: 1. Interval stability of a lesion within the left hepatic lobe,corresponding to a hemangioma. This is similar to prior examination. Nonew lesions are identified. 2. 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 Follow-up as perclinical discretion. 3. Cholecystectomy. Intrahepatic and extra hepatic bile duct dilatationcould represent reservoir effect. No evidence of choledocholithiasis. 4. Renal cortical cysts. 5. Colonic diverticulosis. us Shemar Mancia PA-C IMG MR ABDOMEN Final Result * (ABNORMAL) Comprehensive metabolic panel (01/04/2025 8:54 AM EDT) SODIUM 140 133 - 146 mmol/L [facility] POTASSIUM 4.6 3.3 - 5.1 mmol/L [facility] CHLORIDE 104 96 - 108 mmol/L [facility] CO2 27 21 - 35 mmol/L [facility] BUN 13 6 - 19 mg/dL [facility] CREATININE 0.70 0.5 - 1.5 mg/dL [facility] GLUCOSE 105(H) 70 - 99 mg/dL [facility] ALBUMIN 4.3 3.9 - 4.8 g/dL [facility] TOTAL PROTEIN 7.7 6.5 - 8.0 g/dL [facility] CALCIUM 9.6 8.4 - 10.3 mg/dL [facility] ALKALINE PHOSPHATASE 95 39 - 117 U/L [facility] TOTAL BILIRUBIN 0.4 0.0 - 1.2 mg/dL [facility] AST 26 0 - 37 U/L [facility] ALT 34 0 - 40 U/L [facility] GLOBULIN 3.4 1 - 4.8 g/dL [facility] EGFR 101 >59 mL/min/1.7 3m2 [facility] Comment:Estimated glomerular filtration rate calculated using the CKD-EPI refit equation. ANION GAP 14 10 - 20 mmol/L [facility] Blood 01/04/2025 8:54 AM EDT 01/04/2025 8:59 AM EDT us Shemar Mancia PA-C LAB BLOOD ORDERABLES Final Re sult [address] [phone] * Lipid panel (01/04/2025 8:54 AM EDT) HDL 54 mg/dL [facility] Comment: Interpretation <40 mg/dL: Low HDL cholesterol (major risk factor for CHD) Greater than or equal to 60 mg/dL: High HDL cholesterol ( negative risk factor for CHD) HDL - cholesterol is affected by a number of factors, e.g. smoking, excerise, hormones, sex and age. CHOLESTEROL 194 0 - 240 mg/dL [facility] TRIGLYCERIDES 135 30 - 160 mg/dL [facility] LDL 113 50 - 129 mg/dL [facility] Comment: LDL levels in terms of risk for coronary heart disease: <100 mg/dL: Optimal 100-129 mg/dL: Near or above optimal 130-159 mg/dL: Borderline high 160-189 mg/dL: High >190 mg/dL: Very High CARDIAC RISK RATIO 3.6 3.3 - 4.4 C [facility] Blood 01/04/2025 8:54 AM EDT 01/04/2025 8:59 AM EDT us Shemar Mancia PA-C LAB BLOOD ORDERABLES Final Re sult [address] [address] * Pap Test (09/01/2024 12:00 AM EST) 09/01/2024 09/02/2024 9:1 5 AM EST Narrative SEE NARRATIVE - 09/07/2024 10:54 AM EST [address] [id number] Americanization Teacher: Mino Pollard MD MUSHROOM GROWING SUPERVISOR Cytology Report FINAL DIAGNOSIS A. PAP SMEAR (THIN PREP) CE: SPECIMEN ADEQUACY: Satisfactory for evaluation; transformation zone present. INTERPRETATION: NEGATIVE FOR INTRAEPITHELIAL LESION OR MALIGNANCY. This specimen was analyzed by the automated ThinPrep Imaging System ([facility] and manually rescreened by a black ash worker and/or pathologist. Due to blood, the specimen was reprocessed with 10% Glacial Acetic Acid. Electronically Signed Out By: LISSETTE Malik(ASCP) The Pap test is a screening test primarily for squamous cancers and precursors and has associated false-negative and false-positive results. New technologies such as liquid-based preparations may decrease but will not eliminate all false-negative results. Regular sampling and follow-up of unexplained clinical signs and symptoms are recommended to minimize false negative results. PROCEDURES/ADDENDA HPV Testing (Requested) Ordered Date: 09/02/2024 A. PAP SMEAR (THIN PREP) CE: High-risk HPV Panel w/ extended genotyping NEG HPV 16-NEG HPV 18-NEG HPV 45-NEG HPV 33/58-NEG HPV 31-NEG HPV 56/59/66-NEG HPV 51-NEG HPV 52-NEG HPV 35/39/68-NEG Performed by real-time polymerase chain reaction (PCR) at [facility], [address] [place] [address] using the FDA-approved BD Onclarity9 HPV Assay with extended genotyping. Uses of the assay in scenarios other than those approved by the FDA should be considered off-label use. The accuracy and precision of this test for all other off-label specimen sources has been verified in the Cytopathology Laboratory of the [facility] and has not been cleared or approved by the U.S. Food and Drug Administration. Clinical correlation is advised. The assay assesses the E6/E7 DNA target and utilizes human beta globin as an internal control. Cytology and HPV testing are screening assays and should not be used as the sole means of detecting cancer. False-positives and false-negatives can occur. CLINICAL HISTORY Date of Last Menstrual Period: Not Provided Menstrual History: Unknown Natasha-Menopausal Contraceptive History: IUD Other Clinical Conditions: Screening Pap SPECIMEN SOURCE A: PAP SMEAR (THIN PREP) CE Patient Name: SANJANA MONROE : 1970 (Age: 54) Sex: F Institution: [facility] Location: [facility] Date of Collection: 09/01/2024 Date of Reported: 09/07/2024 10:54 Results to: Millie Davalos us Millie Darling MD CYTOLOGY ORDER CLAIRE Final Result SEE NARRATIVE * HM COLONOSCOPY FOR RESULT ENTRY ONLY (01/27/2020) us Historical Provider HEALTH MAINTENANCE Final Result from Last 3 Months or Most Recently Relevant to Health Maintenance Insurance [facility] Address: [place] [id number] Care Teams Tube Fitter Relationship Specialty Start Date End Date Shemar Mancia PA-C [address] [place] [address] [email or web address] PCP - General Physician Incubator Machine Operator 09/14/24 Keya Sage MD [address] [place] [address] [address] [place] [address] [email or web address] Obstetrics and Gynecology 10/01/19 Additional Source Comments The information contained in this document represents components of the legal health record. It is not the complete legal health record.[facility]
--- OUTSIDE RECORDS SUMMARY | 2025-04-07 18:03 | XMS_ITS | Encounter Summary ---
Author Organization [facility] Address [address] [place] [address] Phone Care Team Providers Care Patch Setter Name Role Phone Keya Sage MD Unavailable [phone] Nahid Rider MD Primary Care Provider [phone] Shemar Mancia PA-C Primary Care Provider [phone] Encounter Details Date Type Department Care Team (Late st Contact Info) Description 08/24/2024 Procedure Pass [facility] - [address] [place] [address] Social History Tobacco Use Types Packs/Day Years Used Date Smoking Tobacco: Never Passive Smoke Exposure: Never Smokeless Tobacco: Never Alcohol Use Standard Drinks/Week Comments Not Currently 0 (1 standard drink = 0.6 oz pur e alcohol) 1-2 drinks, monthly or less Education Answer Date Recorded Are you interested in more education? Not on anthony e 11/15/2022 Are you concerned about learning? Not on file 11/15/2022 No 11/15/2022 No 11/15/2022 Digital Access Answer Date Recorded No 12/15/2022 No 12/15/2022 Reliable internet access at home? Not on file 12/15/2022 Device with a working camera? 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 Not on file Not on file Not on file documented as of this encounter Plan of Treatment Upcoming Encounters Date Type Department Care Team (Late st Contact Info) Description 07/19/2025 7:20 AM EST Office Visit [facility] Internal Medicine [address] [place], [place] [phone] Shemar Mancia PA-C [address] [place] [address] [email or web address] 01/06/2026 7:40 AM EDT Office Visit [facility] [address] [place] [address] 3rd Floor, [address] [place] [address] Job Sheikh MD [address] [place] [address], [address] [address] documented as of this encounter Visit Diagnoses Not on filedocumented in this encounter Additional Health Concerns Assessment Noted Time PHQ-2 Depression Total Score: 0 09/14/19 25 6:05 PM EST documented as of this encounter Care Teams Patch Setter Relationship Specialty Start Date End Date Nahid Rider MD [address] [place] [address] PCP - General Internal Medicine 12/22/22 09/03/24 Shemar Mancia PA-C [address] [place] [email or web address] PCP - General Physician Administration Dean 09/14/24 Keya Sage MD [address] [place] [address], [place] [address] [place] [address] [email or web address] Obstetrics and Gynecology 10/01/19 documented as of this encounter Additional Source Comments The information contained in this document represents components of the legal health record. It is not the complete legal health record.[facility]
--- OUTSIDE RECORDS SUMMARY | 2025-04-07 18:03 | XMS_ITS | Encounter Summary ---
Author Organization [facility] Address [address] [facility] [address] [place] [address] Phone Care Team Providers Care Business Objects Name Role Phone Annie Thomas [facility] Primary Care Provider Keya Sage MD Unavailable [phone] Nahid Rider MD Primary Care Provider [phone] Shemar Mancia PA-C Primary Care Provider [phone] Encounter Details Date Type Department Care Team (Late st Contact Info) Description 03/02/2022 Procedure Pass [place] Admitting Dept - Virtual Department [address] [place] [address] Social History Tobacco Use Types Packs/Day Years Used Date Smoking Tobacco: Never Smokeless Tobacco: Never Alcohol Use Standard Drinks/Week Comments Yes 0 (1 standard drink = 0.6 oz pure alcohol) once every 2-3 months, special occasions Comments No Sex and Gender Information Value [...] Description 07/19/2025 7:20 AM EST Office Visit [facility] Internal Medicine [address] [place], [place] [phone] Shemar Mancia PA-C [address] [place], [place] [phone] [email or web address] 01/06/2026 7:40 AM EDT Office Visit [facility] [address] [place] [address] 3rd Floor, [address] [place] [address] Job Sheikh MD [address] [place] [address], [address] [phone] [email or web address] documented as of this encounter Visit Diagnoses Not on filedocumented in this encounter Additional Health Concerns Assessment Noted Time PHQ-2 Depression Total Score: 1 12/17/19 20 11:39 AM EDT documented as of this encounter Care Teams Business Objects Relationship Specialty Start Date End Date Annie Thomas CNP [address] [place] [address] PCP - General Internal Medicine 11/20/18 12/21/22 Nahid Rider MD [address] [place] [address] [email or web address] PCP - General Internal Medicine 12/22/22 09/03/24 Shemar Mancia PA-C [address] [place] [address] [phone] PCP - General Physician Mat Inspector 09/14/24 Keya Sage MD [address] [place] [address], [address] [place] [address] [email or web address] Obstetrics and Gynecology 10/01/19 documented as of this encounter Additional Source Comments The information contained in this document represents components of the legal health record. It is not the complete legal health record.[facility]
--- OUTSIDE RECORDS SUMMARY | 2025-04-07 18:03 | XMS_ITS | Encounter Summary ---
Author Organization [facility] Address [address] [facility] [address] [place] [address] Phone Care Team Providers Care Speedometer Inspector Name Role Phone Annie Thomas [facility] Primary Care Provider Keya Sage MD Unavailable [phone] Nahid Rider MD Primary Care Provider [phone] Shemar Mancia PA-C Primary Care Provider [phone] Encounter Details Date Type Department Care Team (Late Contact Info) Description 01/02/2022 Procedure Pass [facility] [address] [place] [phone] Social History Tobacco Use Types Packs/Day Years [...] Description 07/19/2025 7:20 AM EST Office Visit [facility] Internal Medicine [address] [place], [place] [phone] Shemar Mancia PA-C [address] [place], [place] [phone] [email or web address] 01/06/2026 7:40 AM EDT Office Visit [facility] [address] [facility] 3rd Floor, [address] [place] [address] Job Sheikh MD [address] [place] [address], [facility] [address] [place], [place] [phone] [email or web address] documented as of this encounter Visit Diagnoses Not on filedocumented in this encounter Additional Health Concerns Assessment Noted Time PHQ-2 Depression Total Score: 1 12/17/19 20 11:39 AM EDT documented as of this encounter Care Teams Speedometer Inspector Relationship Specialty Start Date End Date Annie Thomas CNP [address] [place] [address] [email or web address] PCP - General Internal Medicine 11/20/18 12/21/22 Nahid Rider MD [address] [place] [address] [email or web address] PCP - General Internal Medicine 12/22/22 09/03/24 Shemar Mancia PA-C [address] [place], [place] [phone] [email or web address] PCP - General Physician Insurance Sales Agent 09/14/24 Keya Sage MD [address] [place] [address], [address] [place] [address] [email or web address] Obstetrics and Gynecology 10/01/19 documented as of this encounter Additional Source Comments The information contained in this document represents components of the legal health record. It is not the complete legal health record.[facility]
--- OUTSIDE RECORDS SUMMARY | 2025-04-07 18:03 | XMS_ITS | Encounter Summary ---
Author Organization [facility] Address [address] [place] [address] Phone Care Team Providers Care Full Fashioned Garment Knitter Name Role Phone Annie Thomas CNP Primary Care Provider Keya Sage MD Unavailable [phone] Nahid Rider MD Primary Care Provider [phone] Shemar Mancia PA-C Primary Care Provider [phone] Encounter Details Date Type Department Care Team (Late st Contact Info) Description 09/20/2020 Ancillary Orders [facility] Internal Medicine [address] [place], [place] [phone] Annie Thomas CNP [address] [place] [address] [email or web address] Breast screening Social History Tobacco Use Types Packs/Day Years [...] Description 07/19/2025 7:20 AM EST Office Visit [facility] Internal Medicine [address] [place] [address] Shemar Mancia PA-C [address] [place] [address] 01/06/2026 7:40 AM EDT Office Visit [facility] [address] [place] [address] 3rd Floor, [address] [place], [place] [phone] Job Sheikh MD [address] [facility], [address] [place] [address] [phone] documented as of this encounter Results * BI MAMMOGRAM SCREENING WITH TOMOSYNTHESIS WITH CAD (BILATERAL) (09/28/2020 8:43 AM EST) Anatomical Region Laterality Modality Breast Left, Breast Right, Breast Bilateral Bila teral Mammography 09/28/2020 9:31 AM EST Impressions 09/28/2020 9:34 AM EST BILATERAL BREASTS: Negative, no evidence of malignancy. Normal interval follow- up is recommended in 12 months. Bi-RADS: BI-RADS CATEGORY: 1 - Negative. DENSITY: There are scattered fibroglandular densities. Narrative 09/28/2020 9:34 AM EST STUDY: Bilateral screening mammography with tomosynthesis and CAD TECHNIQUE: Bilateral full-field digital screening mammography is obtained and read in conjunction with computer-aided detection. Tomosynthesis as well as 2-D C view imaging were obtained. COMPARISON: Comparison made to multiple prior, most recent August 26, 2019, and most remote August 09, 2014. BREAST COMPOSITION: There are scattered areas of fibroglandular density BILATERAL BREASTS: No significant masses, suspicious calcifications or other abnormalities are seen. Procedure Note Trace Restrepo MD - 09/28/2020 STUDY: Bilateral screening mammography with tomosynthesis and CAD TECHNIQUE: Bilateral full-field digital screening mammography is obtainedand read in conjunction with computer-aided detection. Tomosynthesis aswell as 2-D C view imaging were obtained. COMPARISON: Comparison made to multiple prior, most recent August, and most remote August 09, 2014. BREAST COMPOSITION: There are scattered areas of fibroglandulardensity BILATERAL BREASTS: No significant masses, suspicious calcifications orother abnormalities are seen. IMPRESSION: BILATERAL BREASTS: Negative, no evidence of malignancy. Normal intervalfollow-up is recommended in 12 months. Bi-RADS: BI-RADS CATEGORY: 1 - Negative. DENSITY: There are scattered fibroglandular densities. Annie Thomas SCIENTIFIC PROGRAMMER ANALYST IMG MG EXAMS Final Result documented in this encounter Visit Diagnoses Diagnosis Breast screening Breast screening, unspecified Breast screening Breast screening, unspecified documented in this encounter Additional Health Concerns Assessment Noted Time PHQ-2 Depression Total Score: 1 12/17/19 11:39 AM EDT documented as of this encounter Care Teams Full Fashioned Garment Knitter Relationship Specialty Start Date End Date Annie Thomas CNP [address] [place] [address] PCP - General Internal Medicine 11/20/18 12/21/22 Nahid Ridre MD [address] [place] [address] PCP - General Internal Medicine 12/22/22 09/03/24 Shemar Mancia PA-C [address] [place] [address] [email or web address] PCP - General Physician Referral Nurse 09/14/24 Keya Sage MD [address] [place] [address], [facility] [address] [place] [address] [email or web address] Obstetrics and Gynecology 10/01/19 documented as of this encounter Additional Source Comments The information contained in this document represents components of the legal health record. It is not the complete legal health record.[facility]
--- OUTSIDE RECORDS SUMMARY | 2025-04-07 18:03 | XMS_ITS | Encounter Summary ---
Author Organization [facility] Address [address] [place] [address] Phone Care Team Providers Care Electrician Supervisor Name Role Phone Keya Sage MD Unavailable [phone] Shemar Mancia PA-C Primary Care Provider [phone] Encounter Details Date Type Department Care Team (Late st Contact Info) Description 03/29/2025 Orders Only [facility] Medicine [address] [place] [address] Provider, MD Ayaz [address] [place] [address] Social History Tobacco Use Types Packs/Day Years [...] high school, GED, job training, learning the Uzbek language, technical skills, or developing parenting skills)? [...] Description 07/19/2025 7:20 AM EST Office Visit [facility] [place] Internal Medicine 40 [place], [place] [phone] Shemar Mancia PA-C 40 [place] [address] [email or web address] 01/06/2026 7:40 AM EDT Office Visit [facility] [address] [facility] 3rd Floor, [address] [place] [address] Job Sheikh MD [address] [facility] [address] [place] [address] [email or web address] documented as of this encounter Procedures Procedure Name Priority Date/Time Associated Diagnosis Comments OUTSIDE PATHOLOGY Routine 03/26/2025 10:50 AM EDT documented in this encounter Results * Outside Pathology (03/26/2025 10:50 AM EDT) us Historical Provider PATHOLOGY ORDERABLES Edit ed Result - Final documented in this encounter Visit Diagnoses Not on filedocumented in this encounter Additional Health Concerns Assessment Noted Time PHQ-2 Depression Total Score: 0 02/24/20 25 6:04 PM EDT documented as of this encounter Care Teams Electrician Supervisor Relationship Specialty Start Date End Date Shemar Mancia PA-C [address] [place] [address] PCP - General Physician Field Crop Farming Supervisor 09/14/24 Keya Sage MD [address] [facility], [address] [place] [address] Obstetrics and Gynecology 10/01/19 documented as of this encounter Additional Source Comments The information contained in this document represents components of the legal health record. It is not the complete legal health record.[facility]
--- OUTSIDE RECORDS SUMMARY | 2025-04-07 18:03 | XMS_ITS | Patient Health Record ---
Author Organization [facility] Address [address] [place] [address] Care Team Providers Care Speed Operator Name Role Phone Annie Thomas Primary Care Provider Unavailab Ethan Quinones Unavailable [phone] Reason For Referral No Information Medications Medication SIG (Take, Route, Frequency, Duration) Notes Start Date End Date Status Metoprolol Succinate 25 MG 1 capsule Ora lly Once a day for 30 day(s) Active Aspir-81 81 MG 1 tablet Orally twic e a week Active Olmesartan Medoxomil 20 MG 1 tablet Oral ly Once a day for 30 day(s) Active Omeprazole 40 MG 1 Orally QAM for 30 day(s) 2019 Active Immunizations Vaccine Route Administration Date Status Comme nts Influenza Unknown 04/28/2018 Administered Influenza Unknown 04/21/2019 Administered Social History Tobacco Use: Social History Observation Description Date Details (start date - stop date) Never Smoker NA - NA Tobacco Use/Smoking Question Answer Notes Patient is a nonsmoker Alcohol Screen Question Answer Notes Did you have a drink contain ing alcohol in the past year? Yes How often did you have a dri nk containing alcohol in the past year? Monthly or less (1 point) How many drinks did you have on a typical day when you were drinking in the past year? 1 or 2 drinks (0 point) How often did you have 6 or more drinks on one occasion in the past year? Never (0 point) Points 1 Interpretation Negative Section Notes: Nonsmoker; no sig alcohol Nonsmoker; no sig alcohol Nonsmoker; no sig alcohol Problems Problem Type SNOMED Code ICD Code Onset Dates Problem Status W/U Status Risk Notes Problem 087192324 Encounter for screening for malignant neoplasm of colon (Z12.11) Active confirmed Problem 905153106 Right upper quadrant pain (R10.11) Active confirmed Problem 55611528912884696 Abnormal CT of liver (R93.2) Active confirmed Problem 405636877 Family history of colon cancer (Z80.0) Active confirmed Problem [id number] Abdominal pain, LUQ (R10.12) Active confirmed Problem 15692471 Liver hemangioma (D18.03) Active confirmed Plan Of Treatment Pending Test Test Name Order Date LIVER PROFILE 07/25/2018 Future Test Test Name Order Date COLONOSCOPY 08/24/2014 COLONOSCOPY 10/30/2019 Next Appt Details Provider Name:Ethan Valente , 04/16/2025 02:20:00 PM, [address] [facility], [address], [place], [address], Insurance Providers Payer Name Payer Address Payer Phone Subscriber Number Group Number Insured Name Patient Relationship to Insured Coverage Start Date Coverage End Date [facility] [address] [place] [phone] [id number] DEMETRI MONROE Self - patient is the insured Medical (General) History Medical History History ICD Code Colonoscopy 04/21/2009 and --neg. for polyps--only internal and external hemorrhoids Denies [place],DM,CVA,Lung disease,renal dise ase On BP meds for reported bord jenny low EF---neg. ETT--followed by a clinical psychologist private practice 3 cm hemangioma in the left lobe of the liver---seen on a CAT scan in 2017, and on ultrasounds in August of 2018 and 2019. Surgical History Surgery Date(Month/Year) Cholecystectomy Tonsillectomy Knee surgery
--- OUTSIDE RECORDS SUMMARY | 2025-04-07 18:03 | XMS_ITS | Encounter Summary ---
Author Organization [facility] Address [address] [facility] [address] [place] [address] Phone Care Team Providers Care Plumber Maintenance Name Role Phone Keya Sage MD Unavailable [phone] Nahid Rider MD Primary Care Provider [phone] Shemar Mancia PA-C Primary Care Provider Encounter Details Date Type Department Care Team (Latest Contact Info) Description 06/20/2023 Transcribe Orders Virtual Department [address] [place] [address] Keya Sage MD [address] [place] [address], [address] [place] [address] [email or web address] Breast screening (Primary Dx) Social History Tobacco Use Types Packs/Day Years Used Date Smoking Tobacco: Never Smokeless Tobacco: Never Alcohol Use Standard Drinks/Week Comments Yes 0 (1 standard drink = 0.6 oz pure alcohol) once every 2-3 months, special occasions Education Answer Date Recorded Are you interested [...] Description 07/19/2025 7:20 AM EST Office Visit [facility] Internal Medicine [address] [place] [address] Shemar Mancia PA-C 40 [place] [address] [email or web address] 01/06/2026 7:40 AM EDT Office Visit [facility] [address] [place] [address] 3rd Floor, [address] [place] [address] [phone] Job Sheikh MD 22 [facility], [address] [place] [address] [phone] documented as of this encounter Results * BI MAMMOGRAM SCREENING WITH TOMOSYNTHESIS WITH CAD (BILATERAL) (07/31/2023 2:38 PM EST) Anatomical Region Laterality Modality Breast Left, Breast Right, Breast Bilateral Bila teral Mammography 08/08/2023 6:07 PM EST Impressions 08/12/2023 10:18 AM EST No mammographic signs of malignancy. Annual screening is recommended. BI-RADS CATEGORY: 2 - Benign finding. DENSITY: There are scattered fibroglandular densities. Narrative 08/12/2023 10:18 AM EST Bilateral mammography is performed in conjunction with computed aided detection. 3-D tomography along with 2-D C view imaging was also performed. Comparison made to previous dated as far back as 08/15/2016 and as recent as 09/28/2020. Diffusely distributed bilateral masses are similar, some appeared to have waxed and waned suggestive of cysts. No suspicious masses, areas of architectural distortion or suspicious microcalcifications. Procedure Note Bro Ray MD - 08/12/2023 Bilateral mammography is performed in conjunction with computed aideddetection. 3-D tomography along with 2-D C view imaging was alsoperformed. Comparison made to previous dated as far back as 08/15/2016 andas recent as 09/28/2020. Diffusely distributed bilateral masses are similar, some appeared to havewaxed and waned suggestive of cysts. No suspicious masses, areas ofarchitectural distortion or suspicious microcalcifications. IMPRESSION: No mammographic signs of malignancy. Annual screening is recommended. BI-RADS CATEGORY: 2 - Benign finding. DENSITY: There are scattered fibroglandular densities. us Keya Sage MD IMG MG EXAMS Final Result documented in this encounter Visit Diagnoses Diagnosis Breast screening- Primary Breast screening, unspecified Breast screening Breast screening, unspecified documented in this encounter Additional Health Concerns Assessment Noted Time PHQ-2 Depression Total Score: 1 12/17/19 20 11:39 AM EDT documented as of this encounter Care Teams Plumber Maintenance Relationship Specialty Start Date End Date Nahid Rider MD [address] [place] [address] PCP - General Internal Medicine 12/22/22 09/03/24 Shemar Mancia PA-C [address] [place] [address] PCP - General Physician Taper Machine 09/14/24 Keya Sage MD [address] [place] [address], [address] [place] [address] [place] [address] [email or web address] Obstetrics and Gynecology 10/01/19 documented as of this encounter Additional Source Comments The information contained in this document represents components of the legal health record. It is not the complete legal health record.[facility]
--- OUTSIDE RECORDS SUMMARY | 2025-04-07 18:03 | XMS_ITS | Encounter Summary ---
Author Organization [facility] Address [address] [place] [address] Phone Care Team Providers Care Timber Watchman Name Role Phone Keya Sage MD Unavailable [phone] Shemar Mancia PA-C Primary Care Provider [phone] Encounter Details Date Type Department Care Team (Latest Contact Info) Description 02/17/2025 Ancillary Orders [facility] Internal Medicine 40 [place], [place] [phone] Shemar Mancia PA-C 40 [place], [place] [phone] [email or web address] Breast screening (Primary Dx) Social History Tobacco [...] with a working camera? Not on file Intimate Partner Violence Answer Date R ecorded [...] Description 07/19/2025 7:20 AM EST Office Visit [facility] [place] Internal Medicine 40 [place] [address] Shemar Mancia PA-C 40 [place] [address] 01/06/2026 7:40 AM EDT Office Visit [facility] [address] [place] [address] 3rd Floor, [address] [place] [address] [phone] Job Sheikh MD 22 [facility], [address] [id number] documented as of this encounter Results * [...] Mancia PA-C IMG MG EXAMS Final Result documented in this encounter Visit Diagnoses Diagnosis Breast screening Breast screening, unspecified Breast screening- Primary Breast screening, unspecified documented in this encounter Additional Health Concerns Assessment Noted Time PHQ-2 Depression Total Score: 0 09/14/19 25 6:05 PM EST documented as of this encounter Care Teams Timber Watchman Relationship Specialty Start Date End Date Shemar Mancia PA-C [address] [place] [address] PCP - General Physician Hypoid Gear Generator 09/14/24 Keya Sage MD [address] [place] [address], [address] [place] [address] [email or web address] Obstetrics and Gynecology 10/01/19 documented as of this encounter Additional Source Comments The information contained in this document represents components of the legal health record. It is not the complete legal health record.[facility]
--- OUTSIDE RECORDS SUMMARY | 2025-04-07 18:03 | XMS_ITS | Encounter Summary ---
Author Organization [facility] Address [address] [facility] [address] [place] [address] Phone Care Team Providers Care Vp Customer Development Name Role Phone Keya Sage MD Unavailable [phone] Nahid Rider MD Primary Care Provider [phone] Shemar Mancia PA-C Primary Care Provider [phone] Encounter Details Date Type Department Care Team (Late st Contact Info) Description 06/20/2023 Procedure Pass [facility] - [address] [place] [address] Social History Tobacco Use Types Packs/Day Years [...] Description 07/19/2025 7:20 AM EST Office Visit [facility] Internal Medicine 40 [place], [place] [phone] Shemar Mancia PA-C 40 [place] [address] 01/06/2026 7:40 AM EDT Office Visit [facility] [address] [facility] 3rd Floor, [address] [place] [address] Job Sheikh MD [address] [place] [address], [address] [address] documented as of this encounter Visit Diagnoses Not on filedocumented in this encounter Additional Health Concerns Assessment Noted Time PHQ-2 Depression Total Score: 1 12/17/19 20 11:39 AM EDT documented as of this encounter Care Teams Vp Customer Development Relationship Specialty Start Date End Date Nahid Rider MD 40 [place] [address] PCP - General Internal Medicine 12/22/22 09/03/24 Shemar Mancia PA-C 40 [place] [address] PCP - General Physician Evaluation Advisor 09/14/24 Keya Sage MD [address] [place] [address], [address] [address] [email or web address] Obstetrics and Gynecology 10/01/19 documented as of this encounter Additional Source Comments The information contained in this document represents components of the legal health record. It is not the complete legal health record.[facility]
--- OUTSIDE RECORDS SUMMARY | 2025-04-07 18:03 | XMS_ITS | Encounter Summary ---
Author Organization [facility] Address [address] [facility] [address] [place] [address] Phone Care Team Providers Care Cdl Dedicated Truck Driver Name Role Phone Annie Thomas CNP Primary Care Provider Keya Sage MD Unavailable [phone] Nahid Rider MD Primary Care Provider [phone] Shemar Mancia PA-C Primary Care Provider [phone] Encounter Details Date Type Department Care Team (Late st Contact Info) Description 09/20/2020 Procedure Pass [facility] - [address] [place] [address] Social History Tobacco Use Types Packs/Day Years [...] Description 07/19/2025 7:20 AM EST Office Visit [facility] [place] Internal Medicine 40 [place], [place] [phone] Shemar Mancia PA-C 40 [place], [place] 1476007 [email or web address] 01/06/2026 7:40 AM EDT Office Visit [facility] [address] [place] [address] 3rd Floor, [address] [place] [address] Job Sheikh MD [address] [place] [address], [facility] [address] [place], [place] [phone] [email or web address] documented as of this encounter Visit Diagnoses Not on filedocumented in this encounter Additional Health Concerns Assessment Noted Time PHQ-2 Depression Total Score: 1 12/17/19 20 11:39 AM EDT documented as of this encounter Care Teams Cdl Dedicated Truck Driver Relationship Specialty Start Date End Date Annie Thomas CNP 40 [place] [address] PCP - General Internal Medicine 11/20/18 12/21/22 Nahid iRder MD [address] [place] [address] PCP - General Internal Medicine 12/22/22 09/03/24 Shemar Mancia PA-C [address] [place] [address] [phone] PCP - General Physician Video Library Assistant 09/14/24 Keya Sage MD [address] [place] [address], [address] [place] [address] [email or web address] Obstetrics and Gynecology 10/01/19 documented as of this encounter Additional Source Comments The information contained in this document represents components of the legal health record. It is not the complete legal health record.[facility]
--- OUTSIDE RECORDS SUMMARY | 2025-04-07 18:03 | XMS_ITS | Encounter Summary ---
Author Organization [facility] Address [address] [place] [address] Phone Care Team Providers Care Color Expert Name Role Phone Keya Sage MD Unavailable [phone] Shemar Mancia PA-C Primary Care Provider [phone] Encounter Details Date Type Department Care Team (Late st Contact Info) Description 09/17/2024 Procedure Pass [facility] - [address] [address] Social History Tobacco Use Types Packs/Day Years [...] Description 07/19/2025 7:20 AM EST Office Visit [facility] Internal Medicine 40 [place], [place] [phone] Shemar Mancia PA-C 40 [place] [address] 01/06/2026 7:40 AM EDT Office Visit [facility] [address] [place] [address] 3rd [facility], [address] [place] [address] [phone] Job Sheikh MD [address] [place] [address], [address] [phone] documented as of this encounter Visit Diagnoses Not on filedocumented in this encounter Additional Health Concerns Assessment Noted Time PHQ-2 Depression Total Score: 0 09/14/19 25 6:05 PM EST documented as of this encounter Care Teams Color Expert Relationship Specialty Start Date End Date Shemar Mancia PA-C [address] [place] [address] PCP - General Physician End Packer 09/14/24 Keya Sage MD [address] [place] [address], [facility] [address] [place] [address] [email or web address] Obstetrics and Gynecology 10/01/19 documented as of this encounter Additional Source Comments The information contained in this document represents components of the legal health record. It is not the complete legal health record.[facility]
--- OUTSIDE RECORDS SUMMARY | 2025-04-07 18:03 | XMS_ITS | Encounter Summary ---
Author Organization [facility] Address [address] [place] [address] Phone Care Team Providers Care Tank Tender Name Role Phone Keya Sage MD Unavailable Shemar Mancia PA-C Primary Care Provider [phone] Encounter Details Date Type Department Care Team (Late st Contact Info) Description 09/17/2024 Procedure Pass [facility], [address] [address] Social History Tobacco Use Types Packs/Day Years [...] Description 07/19/2025 7:20 AM EST [facility] 40 [place], [place] [phone] Shemar Mancia PA-C [address] [place] [address] 01/06/2026 7:40 AM EDT Office Visit [facility] [address] [place] [address] 3rd [facility], [address] [place] [address] [phone] Job Sheikh MD [address] [place] [address], [address] [phone] documented as of this encounter Visit Diagnoses Not on filedocumented in this encounter Additional Health Concerns Assessment Noted Time PHQ-2 Depression Total Score: 0 09/14/19 25 6:05 PM EST documented as of this encounter Care Teams Tank Tender Relationship Specialty Start Date End Date Shemar Mancia PA-C [address] [place] [address] PCP - General Physician Telephone Operators Supervisor 09/14/24 Keya Sage MD [address] [place] [address], [facility] [address] [place] [address] [email or web address] Obstetrics and Gynecology 10/01/19 documented as of this encounter Additional Source Comments The information contained in this document represents components of the legal health record. It is not the complete legal health record.[facility]
--- OUTSIDE RECORDS SUMMARY | 2025-04-07 18:03 | XMS_ITS | Clinical Summary ---
Author Organization [facility] Address [address] [place] [address] Care Team Providers Care Manager Spa Name Role Phone [facility] Primary Care Provider Unav ailable Social History Tobacco Use Types Packs/Day Years Used Date Smoking Tobacco: Never Assessed Comments Unknown Sex and Gender Information Value Date Recorded Sex Assigned at Not on file Legal Sex Female 4:12 PM EDT Gender Identity Not on file Sexual Orientation Not on file Plan of Treatment Health Maintenance Due Date Last Done Comments Hepatitis C Virus Screening 1970 HIV Screening 01/18/1981 DTaP/Tdap/Td Vaccines (1 - Tdap) 01/18/1987 Hepatitis B Vaccines (1 of 3 - 19+ 3-dose series) 12/22 Pneumococcal Vaccines 50+ (1 of 1 - PCV) 01/18/2018 Zoster (Shingles) Vaccine (1 of 2) 01/18/2018 COVID-19 Vaccine ( - season) 2025 Care Teams Manager Spa Relationship Specialty Start Date End Date [facility] PCP - General Internal Medicine 04/04/18
--- OUTSIDE RECORDS SUMMARY | 2025-04-07 18:03 | XMS_ITS | Encounter Summary ---
Author Organization [facility] Address [address] [place] [address] Phone Care Team Providers Care Retail Training Manager Name Role Phone Keya Sage MD Unavailable [phone] Shemar Mancia PA-C Primary Care Provider [phone] Encounter Details Date Type Department Care Team (Late st Contact Info) Description 10/05/2024 Procedure Pass [facility], [address] [address] Social History Tobacco Use Types Packs/Day Years [...] Description 07/19/2025 7:20 AM EST Office Visit [facility] Internal Medicine 40 [place], [place] [phone] Shemar Mancia PA-C [address] [place] [email or web address] 01/06/2026 7:40 AM EDT Office Visit [facility] [address] [place] [address] 3rd [facility], [address] [place] [address] [phone] Job Sheikh MD [address] [place] [address], [address] [phone] documented as of this encounter Visit Diagnoses Not on filedocumented in this encounter Additional Health Concerns Assessment Noted Time PHQ-2 Depression Total Score: 0 09/14/19 25 6:05 PM EST documented as of this encounter Care Teams Retail Training Manager Relationship Specialty Start Date End Date Shemar Mancia PA-C [address] [place] [address] PCP - General Physician Business Banking Manager 09/14/24 Keya Sage MD [address] [place] [address], [facility] [address] [place] [address] [email or web address] Obstetrics and Gynecology 10/01/19 documented as of this encounter Additional Source Comments The information contained in this document represents components of the legal health record. It is not the complete legal health record.[facility]
--- OUTSIDE RECORDS SUMMARY | 2025-04-07 18:03 | XMS_ITS | Encounter Summary ---
Author Organization [facility] Address [address] [address] Phone Care Team Providers Care Early Childhood Education Coordinator Name Role Phone Maximus Lucia MD Unavailable Keya Sage MD Unavailable Helena Cavanaugh OPERATIONS RESEARCH ANALYST Unavailable [phone] Diony Whitfield MD Unavailable [phone] Jodie Bonilla MD Unavailable Carlitos Zhang MD Unavailable [phone] Davina Varghese MD Unavailable [phone] Maximus Lucia MD Primary Care Provider [phone] Pcp, Unknown Primary Care Provider UnavailAnnie Holguin [facility] Primary Care Provider Keya Sage MD Unavailable [phone] Nahid Rider MD Primary Care Provider [phone] Shemar Mancia PA-C Primary Care Provider [phone] Encounter Details Date Type Department Care Team (Late st Contact Info) Description 06/03/2018 Ancillary Orders [facility] [address] [place] [address] Kimberly Mckeon MD 22 [facility], [address] [place] [address] [email or web address] Breast screening Social History Tobacco Use Types Packs/Day Years Used Date Smoking Tobacco: Never Smokeless Tobacco: Never Alcohol Use Standard Drinks/Week Comments Yes 2 (1 standard drink = 0.6 oz pur e alcohol) weekly Comments No Sex and Gender Information Value [...] Description 07/19/2025 7:20 AM EST Office Visit [facility] Internal Medicine 40 [place] [address] Shemar Mancia PA-C 40 [place] [address] 01/06/2026 7:40 AM EDT Office Visit [facility] [address] [place] [address] 3rd Floor, [address] [place] [address] Job Sheikh MD 22 [facility], [address] [place] [address] [email or web address] documented as of this encounter Results * BI MAMMOGRAM SCREENING WITH TOMOSYNTHESIS WITH CAD (BILATERAL) (08/25/2018 8:32 AM EST) Anatomical Region Laterality Modality Breast Left, Breast Right, Breast Bilateral Bila teral Mammography 08/25/2018 8:40 AM EST Impressions 08/25/2018 8:46 AM EST No mammographic change indicative of malignancy. Routine screening is recommended. BI-RADS CATEGORY: 1 - Negative. DENSITY: There are scattered fibroglandular densities. POS - CDHMAMA Narrative 08/25/2018 8:46 AM EST FINDINGS: Bilateral full-field digital screening mammography is obtained and read in conjunction with computer-aided detection. 3-D tomosynthesis as well as 2-D C view imaging is also performed. Comparison includes the most recent exam from 08/22/2017 and as far back as 08/04/2012. Breasts are composed of scattered fibroglandular tissue. No new suspicious mass, suspicious microcalcifications, architectural distortion, focal skin thickening, or new asymmetry is detected. Procedure Note Antonieta Gutierres MD - 08/25/2018 FINDINGS: Bilateral full-field digital screening mammography is obtained and read inconjunction with computer-aided detection. 3-D tomosynthesis as well as2-D C view imaging is also performed. Comparison includes the most recentexam from 08/22/2017 and as far back as 08/04/2012. Breasts are composed of scattered fibroglandular tissue. No newsuspicious mass, suspicious microcalcifications, architectural distortion,focal skin thickening, or new asymmetry is detected. IMPRESSION: No mammographic change indicative of malignancy. Routine screening isrecommended. BI-RADS CATEGORY: 1 - Negative. DENSITY: There are scattered fibroglandular densities. POS - CDHMAMA Kimberly Mckeon MD IMG MG EXAMS Final Resul t documented in this encounter Visit Diagnoses Diagnosis Breast screening Breast screening, unspecified Breast screening Breast screening, unspecified documented in this encounter Additional Health Concerns Infection Onset Date Last Indicated Resolved Time CoV-Risk 12/12/2019 12/12/2019 12/26/2019 1:23 AM EDT documented as of this encounter Care Teams Early Childhood Education Coordinator Relationship Specialty Start Date End Date Maximus Lucia MD [address] [place] [address] PCP - General 07/25/17 08/24/18 Pcp, Unknown PCP - General 08/25/18 11/19/18 Annie Thomas CNP 40 [place] [address] PCP - General Internal Medicine 11/20/18 12/21/22 Nahid Rider MD 40 [place] [address] PCP - General Internal Medicine 12/22/22 09/03/24 Shemar Mancia PA-C 40 [place] [address] PCP - General Physician General Education Instructor 09/14/24 Maximus Lucia MD [address] [place] [address] Historical LMR Provider 05/08/17 0 Keya Sage MD [address] [place] [address], [address] [address] Historical LMR Provider 05/08/17 09/24/19 Helena Cavanaugh NP [address] [place] [address] Historical LMR Provider 05/08/17 0 Diony Whitfield MD [address] [place] [address], [address] [place] [address] Historical LMR Provider 05/08/17 09/24/19 Jodie Bonilla MD 4 [facility], [facility] [place] [address] Historical LMR Provider 05/08/17 Carlitos Zhang MD [address] [place] [address] Historical LMR Provider 05/08/17 0 Davina Varghese MD 46 [facility] [address] [place] [address] [email or web address] Historical LMR Provider 05/08/17 09/24/19 Keya Sage MD 22 [facility], [address] [place] [address] Obstetrics and Gynecology 10/01/19 documented as of this encounter Additional Source Comments The information contained in this document represents components of the legal health record. It is not the complete legal health record.[facility]
--- OUTSIDE RECORDS SUMMARY | 2025-04-07 18:03 | XMS_ITS | Encounter Summary ---
Author Organization [facility] Address [address] [facility] [address] [place] [address] Phone Care Team Providers Care Transformation Specialist Name Role Phone Maximus Lucia MD Unavailable Keya Sage MD Unavailable [phone] Helena Cavanaugh TRASH COLLECTOR TRUCK DRIVER Unavailable [phone] Diony Whitfield MD Unavailable Jodie Bonilla MD Unavailable Carlitos Zhang MD Unavailable [phone] Davina Varghese MD Unavailable Annie Thomas CLINICAL NURSING PROFESSOR Primary Care Provider Keya Sage MD Unavailable [phone] Nahid Rider MD Primary Care Provider [phone] Shemar Mancia PA-C Primary Care Provider Encounter Details Date Type Department Care Team (Late st Contact Info) Description 06/09/2019 Ancillary Orders [facility] Internal Medicine [address] [facility] [place] [address] ChenAnnie kenney CNP [address] [place] [address] [email or web address] Breast screening Social History Tobacco Use Types Packs/Day Years Used Date Smoking Tobacco: Never Smokeless Tobacco: Never Alcohol Use Standard Drinks/Week Comments Yes 0 (1 standard drink = 0.6 oz pur e alcohol) occasionally Comments No Sex and Gender Information Value [...] Description 07/19/2025 7:20 AM EST Office Visit [facility] Internal Medicine [address] [place] [address] Shemar Mancia PA-C [address] [place] [address] [email or web address] 01/06/2026 7:40 AM EDT Office Visit [facility] [address] [place] [address] 3rd Floor, [address] [place] [address] [phone] Job Sheikh MD [address] [place] [address], [address] [place] [address] [phone] [email or web address] documented as of this encounter Results * BI MAMMOGRAM SCREENING WITH TOMOSYNTHESIS WITH CAD (BILATERAL) (08/26/2019 8:24 AM EST) Anatomical Region Laterality Modality Breast Left, Breast Right, Breast Bilateral Bila teral Mammography 08/26/2019 9:24 AM EST Impressions 08/26/2019 9:33 AM EST No mammographic signs of malignancy. Annual screening is recommended. BI-RADS CATEGORY: 2 - Benign finding. DENSITY: There are scattered fibroglandular densities. POS - CDHMAMA Narrative 08/26/2019 9:33 AM EST Bilateral mammography is performed in conjunction with computed aided detection. 3-D tomography along with 2-D C view imaging was also performed. Comparison made to previous dated as far back as 07/01/2008 and as recent as 08/25/2018. Few scattered well-circumscribed subcentimeter masses in the right breast are similar to previous exams and likely small cysts. Intramammary lymph node in the posterior upper outer aspect of each breast. These contain fatty regis. No suspicious masses, areas of architectural distortion or suspicious microcalcifications. Procedure Note Bro Samaniego MD - 08/26/2019 Bilateral mammography is performed in conjunction with computed aideddetection. 3-D tomography along with 2-D C view imaging was alsoperformed. Comparison made to previous dated as far back as 07/01/2008 andas recent as 08/25/2018. Few scattered well-circumscribed subcentimeter masses in the right breastare similar to previous exams and likely small cysts. Intramammary lymphnode in the posterior upper outer aspect of each breast. These containfatty regis. No suspicious masses, areas of architectural distortion orsuspicious microcalcifications. IMPRESSION: No mammographic signs of malignancy. Annual screening is recommended. BI-RADS CATEGORY: 2 - Benign finding. DENSITY: There are scattered fibroglandular densities. POS - CDHMAMA Annie Thomas CNP IMG MG EXAMS Final Result documented in this encounter Visit Diagnoses Diagnosis Breast screening Breast screening, unspecified Breast screening Breast screening, unspecified documented in this encounter Additional Health Concerns Infection Onset Date Last Indicated Resolved Time CoV-Risk 12/12/2019 12/12/2019 12/26/2019 1:23 AM EDT Assessment Noted Time PHQ-2 Depression Total Score: 0 11/21/19 19 8:23 AM EDT documented as of this encounter Care Teams Transformation Specialist Relationship Specialty Start Date End Date Annie Thomas CNP [address] [place] [address] [email or web address] PCP - General Internal Medicine 11/20/18 12/21/22 Nahid Rider MD [address] [place] [address] PCP - General Internal Medicine 12/22/22 09/03/24 Shemar Mancia PA-C [address] [place] [address] PCP - General Physician Business Info Consultant 09/14/24 Maximus Lucia MD [address] [place] [address] Historical LMR Provider 05/08/17 0 Keya Sage MD [address] [place] [address] [email or web address] Historical LMR Provider 05/08/17 09/24/19 Helena Cavanaugh NP [address] [place] [address] Historical LMR Provider 05/08/17 0 Diony Whitfield MD [address] [place] [address] [email or web address] Historical LMR Provider 05/08/17 09/24/19 Jodie Bonilla MD [address] [place] [address] [facility], [place] [address] Historical LMR Provider 05/08/17 Carlitos Zhang MD [address] [place] [address] Historical LMR Provider 05/08/17 0 Davina Varghese MD [address] [address] [email or web address] Historical LMR Provider 05/08/17 09/24/19 Keya Sage MD [address] [place] [address], [address] [place] [address] Obstetrics and Gynecology 10/01/19 documented as of this encounter Additional Source Comments The information contained in this document represents components of the legal health record. It is not the complete legal health record.[facility]
--- OUTSIDE RECORDS SUMMARY | 2025-04-07 18:03 | XMS_ITS | Encounter Summary ---
Author Organization [facility] Address [address] [facility] [address] [place] [address] Phone Care Team Providers Care Stretch Machine Operator Name Role Phone Maximus Lucia MD Unavailable [phone] Keya Sage MD Unavailable Helena Cavanaugh NURSING CENTER TUTOR Unavailable [phone] Diony Whitfield MD Unavailable Jodie Bonilla MD Unavailable Carlitos Zhang MD Unavailable [phone] Davina Varghese MD Unavailable Maximus Lucia MD Primary Care Provider Pcp, Unknown Primary Care Provider UnavailAnnie Holguin [facility] Primary Care Provider Keya Sage MD Unavailable [phone] Nahid Rider MD Primary Care Provider Shemar Mancia PA-C Primary Care Provider [phone] Encounter Details Date Type Department Care Team (Late st Contact Info) Description 07/30/2017 Ancillary Orders Virtual Department 30 [place] [address] Maximus Lucia MD [address] [place] [address] Breast screening Social History Tobacco Use Types Packs/Day Years Used Date Smoking Tobacco: Never Assessed Comments Unknown Sex and Gender Information Value Date Recorded Sex Assigned at Female 07/12/2018 6:16 PM EST Legal Sex Female 9:37 PM EDT Gender Identity Female 07/12/2018 6:16 PM EST Sexual Orientation Straight 07/12/2018 6: 16 PM EST documented as of this encounter Plan of Treatment Upcoming Encounters Date Type Department Care Team (Late st Contact Info) Description 07/19/2025 7:20 AM EST Office Visit [facility] Internal Medicine 40 [place] [address] Shemar Mancia PA-C [address] [place] [address] [email or web address] 01/06/2026 7:40 AM EDT Office Visit [facility] [address] [place] [address] 3rd Floor, [address] [place] [address] Job Sheikh MD 22 [facility], [address] [place] [address] [email or web address] documented as of this encounter Results * BI MAMMOGRAM SCREENING WITH TOMOSYNTHESIS WITH CAD (BILATERAL) (08/22/2017 8:11 AM EST) Anatomical Region Laterality Modality Breast Left, Breast Right, Breast Bilateral Bila teral Mammography 08/22/2017 12:1 4 PM EST Impressions 08/22/2017 12:22 PM EST No mammographic signs of malignancy. Annual screening is recommended. BI-RADS CATEGORY: 2 - Benign finding. DENSITY: There are scattered fibroglandular densities. POS - CDHMAMA Narrative 08/22/2017 12:22 PM EST A Bilateral mammography is performed in conjunction with computed aided detection. 3-D tomography along with 2-D C view imaging was also performed. Comparison made to previous dated as far back as 07/31/2011 and as recent as 08/15/2016. No suspicious masses, areas of architectural distortion or suspicious microcalcifications. A few bilateral skin calcifications are stable. Procedure Note Bro Samaniego MD - 08/22/2017 A Bilateral mammography is performed in conjunction with computed aideddetection. 3-D tomography along with 2-D C view imaging was alsoperformed. Comparison made to previous dated as far back as 07/31/2011 andas recent as 08/15/2016. No suspicious masses, areas of architectural distortion or suspiciousmicrocalcifications. A few bilateral skin calcifications are stable. IMPRESSION: No mammographic signs of malignancy. Annual screening is recommended. BI-RADS CATEGORY: 2 - Benign finding. DENSITY: There are scattered fibroglandular densities. POS - CDHMAMA Maximus Lucia MD IMG MG EXAMS Final Result documented in this encounter Visit Diagnoses Diagnosis Breast screening Breast screening, unspecified Breast screening Breast screening, unspecified documented in this encounter Additional Health Concerns Infection Onset Date Last Indicated Resolved Time CoV-Risk 12/12/2019 12/12/2019 12/26/2019 1:23 AM EDT documented as of this encounter Care Teams Stretch Machine Operator Relationship Specialty Start Date End Date Maximus Lucia MD [address] [place] [address] PCP - General 07/25/17 08/24/18 Pcp, Unknown PCP - General 08/25/18 11/19/18 Annie Thomas CNP [address] [place] [address] PCP - General Internal Medicine 11/20/18 12/21/22 Nahid Rider MD [address] [place] [address] PCP - General Internal Medicine 12/22/22 09/03/24 Shemar Mancia PA-C [address] [place] [address] PCP - General Physician Chemical Unit Operator 09/14/24 Maximus Lucia MD [address] [place] [address] Historical LMR Provider 05/08/17 0 Keya Sage MD [address] [place] [address] Historical LMR Provider 05/08/17 09/24/19 Helena Cavanaugh NP [address] [place] [address] Historical LMR Provider 05/08/17 0 Diony Whitfield MD [address] [place] [address] Historical LMR Provider 05/08/17 09/24/19 Jodie Bonilla MD [address] [place] [address] [facility], [place] [address] Historical LMR Provider 05/08/17 Carlitos Zhang MD [address] [place] [address] Historical LMR Provider 05/08/17 0 Davina Varghese MD 46 [facility] [address] [place] [address] [email or web address] Historical LMR Provider 05/08/17 09/24/19 Keya Sage MD [address] [place] [address], [facility] [address] [place] [address] [email or web address] Obstetrics and Gynecology 10/01/19 documented as of this encounter Additional Source Comments The information contained in this document represents components of the legal health record. It is not the complete legal health record.[facility]
== END 2025-04-07 14:19 | disposition home or self-care (01) ==
LOC: HO.HMGAL 14:18
PROVIDERS: PCP Physician Assistant Surgical; Visit Provider Registered Nurse Emergency
DX: J30.89 Other allergic rhinitis (principal)
CPT/HCPCS: 95117; 95165

== ENCOUNTER 2025-06-09 15:46 | Outpatient (AMB) | payer OTHER, SELFPAY ==
--- OUTSIDE RECORDS SUMMARY | 2025-06-10 04:21 | XMS_ITS | Encounter Summary ---
Author Organization [facility] Address [address] [place] [address] Phone Care Team Providers Care Automotive Parts Clerk Name Role Phone Keya Sage MD Unavailable [phone] Shemar Mancia PA-C Primary Care Provider [phone] Encounter Details Date Type Department Care Team (Late st Contact Info) Description 09/17/2024 Procedure Pass [facility], [address] [address] Social History Tobacco Use Types Packs/Day Years [...] Description 07/19/2025 7:20 AM EST Office Visit [facility] Internal Medicine 40 [place], [place] [phone] Shemar Mancia PA-C [address] [place] [email or web address] 01/06/2026 7:40 AM EDT Office Visit [facility] [address] [place] [address] 3rd [facility], [address] [place] [address] [phone] Job Sheikh MD [address] [place] [address], [address] [phone] documented as of this encounter Visit Diagnoses Not on filedocumented in this encounter Additional Health Concerns Assessment Noted Time PHQ-2 Depression Total Score: 0 09/14/19 25 6:05 PM EST documented as of this encounter Care Teams Automotive Parts Clerk Relationship Specialty Start Date End Date Shemar Mancia PA-C [address] [place] [address] PCP - General Physician Scrap Crusher 09/14/24 Keya Sage MD [address] [place] [address], [facility] [address] [place] [address] [email or web address] Obstetrics and Gynecology 10/01/19 documented as of this encounter Additional Source Comments The information contained in this document represents components of the legal health record. It is not the complete legal health record.[facility]
--- OUTSIDE RECORDS SUMMARY | 2025-06-10 04:21 | XMS_ITS | Encounter Summary ---
Author Organization [facility] Address [address] [place] [address] Phone Care Team Providers Care Customer Service Clerk Name Role Phone Keya Sage MD Unavailable [phone] Shemar Mancia PA-C Primary Care Provider [phone] Encounter Details Date Type Department Care Team (Late st Contact Info) Description 10/05/2024 Procedure Pass [facility], [address] [address] Social History Tobacco Use Types Packs/Day Years [...] Description 07/19/2025 7:20 AM EST Office Visit [facility] Internal Medicine 40 [place], [place] [phone] Shemar Mancia PA-C [address] [place] [address] 01/06/2026 7:40 AM EDT Office Visit [facility] [address] [place] [address] 3rd [facility], [address] [place] [address] [phone] Job Sheikh MD [address] [place] [address], [address] [phone] documented as of this encounter Visit Diagnoses Not on filedocumented in this encounter Additional Health Concerns Assessment Noted Time PHQ-2 Depression Total Score: 0 09/14/19 25 6:05 PM EST documented as of this encounter Care Teams Customer Service Clerk Relationship Specialty Start Date End Date Shemar Mancia PA-C [address] [place] [address] PCP - General Physician Filler Machine Operator 09/14/24 Keya Sage MD [address] [place] [address], [facility] [address] [place] [address] [email or web address] Obstetrics and Gynecology 10/01/19 documented as of this encounter Additional Source Comments The information contained in this document represents components of the legal health record. It is not the complete legal health record.[facility]
--- OUTSIDE RECORDS SUMMARY | 2025-06-10 04:21 | XMS_ITS | Clinical Summary ---
Author Organization [facility] Address [address] [place] [address] Care Team Providers Care Blanket Maker Name Role Phone [facility] Primary Care Provider Unav ailable Social History [...] 01/18/2018 COVID-19 Vaccine ( - season) 2025 RSV Vaccine 50 years and old er and Patients (1 - 1-dose 75+ series) 01/18/2043 Care Teams Blanket Maker Relationship Specialty Start Date End Date [facility] PCP - General Internal Medicine 04/04/18
--- OUTSIDE RECORDS SUMMARY | 2025-06-10 04:21 | XMS_ITS | Encounter Summary ---
Author Organization [facility] Address 399 [facility] [address] [place] [address] Phone Care Team Providers Care Licensed Nuclear Control Room Operator Name Role Phone Annie Thomas CNP Primary Care Provider Keya Sage MD Unavailable [phone] Nahid Rider MD Primary Care Provider [phone] Shemar Mancia PA-C Primary Care Provider [phone] Encounter Details Date Type Department Care Team (Late st Contact Info) Description 09/20/2020 Procedure Pass [facility] - [address] [place] [address] Social History Tobacco Use Types Packs/Day Years [...] Description 07/19/2025 7:20 AM EST Office Visit [facility] Internal Medicine 40 [place], [place] [phone] Shemar Mancia PA-C 40 [place], [place] [phone] [email or web address] 01/06/2026 7:40 AM EDT Office Visit [facility] [address] [place] [address] 3rd Floor, [address] [place] [address] Job Sheikh MD [address] [place] [address], [facility] [address] [place], [place] [phone] [email or web address] documented as of this encounter Visit Diagnoses Not on filedocumented in this encounter Additional Health Concerns Assessment Noted Time PHQ-2 Depression Total Score: 1 12/17/19 20 11:39 AM EDT documented as of this encounter Care Teams Licensed Nuclear Control Room Operator Relationship Specialty Start Date End Date Annie Thomas CNP 40 [place] [address] PCP - General Internal Medicine 11/20/18 12/21/22 Nahid Rider MD [address] [place] [address] PCP - General Internal Medicine 12/22/22 09/03/24 Shemar Mancia PA-C [address] [place] [address] [phone] PCP - General Physician Student Finance Advisor 09/14/24 Keya Sage MD [address] [place] [address], [address] [place] [address] [email or web address] Obstetrics and Gynecology 10/01/19 documented as of this encounter Additional Source Comments The information contained in this document represents components of the legal health record. It is not the complete legal health record.[facility]
--- OUTSIDE RECORDS SUMMARY | 2025-06-10 04:21 | XMS_ITS | Encounter Summary ---
Author Organization [facility] Address [address] [facility] [address] [place] [address] Phone Care Team Providers Care Press Clipper Name Role Phone Keya Sage MD Unavailable [phone] Nahid Rider MD Primary Care Provider [phone] Shemar Mancia PA-C Primary Care Provider [phone] Encounter Details Date Type Department Care Team (Late st Contact Info) Description 06/20/2023 Procedure Pass [facility] - [address] [place] [address] Social History Tobacco Use Types Packs/Day Years [...] Description 07/19/2025 7:20 AM EST Office Visit [facility] Internal Medicine 40 [place], [place] [phone] Shemar Mancia PA-C 40 [place] [address] 01/06/2026 7:40 AM EDT Office Visit [facility] [address] [facility] 3rd Floor, [address] [place] [address] Job Sheikh MD [address] [place] [address], [address] [address] documented as of this encounter Visit Diagnoses Not on filedocumented in this encounter Additional Health Concerns Assessment Noted Time PHQ-2 Depression Total Score: 1 12/17/19 20 11:39 AM EDT documented as of this encounter Care Teams Press Clipper Relationship Specialty Start Date End Date Nahid Rider MD 40 [place] [address] PCP - General Internal Medicine 12/22/22 09/03/24 Shemar Mancia PA-C 40 [place] [address] PCP - General Physician Stone Driller 09/14/24 Keya Sage MD [address] [place] [address], [address] [address] [email or web address] Obstetrics and Gynecology 10/01/19 documented as of this encounter Additional Source Comments The information contained in this document represents components of the legal health record. It is not the complete legal health record.[facility]
--- OUTSIDE RECORDS SUMMARY | 2025-06-10 04:21 | XMS_ITS | Encounter Summary ---
Author Organization [facility] Address [address] [facility] [address] [place] [address] Phone Care Team Providers Care Retail Merchandising Coordinator Name Role Phone Keya Sage MD Unavailable [phone] Nahid Rider MD Primary Care Provider Shemar Mancia PA-C Primary Care Provider Encounter Details Date Type Department Care Team (Latest Contact Info) Description 06/20/2023 Transcribe Orders Virtual Department [address] [place] [address] Keya Sage MD [address] [place] [address], [address] [place] [address] [email or web address] Breast screening (Primary Dx) Social History Tobacco [...] 07/19/2025 7:20 AM EST Office Visit [facility] Internal Medicine 40 [place] [address] Shemar Mancia PA-C 40 [place] [address] [email or web address] 01/06/2026 7:40 AM EDT Office Visit [facility] [address] [place] [address] 3rd Floor, [address] [place] [address] [phone] Job Sheikh MD 22 [facility], [address] [place] [address] [phone] documented as of this encounter Results * [...] as of this encounter Care Teams Retail Merchandising Coordinator Relationship Specialty Start Date End Date Nahid Rider MD [address] [place] [address] PCP - General Internal Medicine 12/22/22 09/03/24 Shemar Mancia PA-C 40 [place] [address] [email or web address] PCP - General Physician Steam Heating Installer 09/14/24 Keya Sage MD [address] [place] [address], [address] [place] [address] [place] [address] [email or web address] Obstetrics and Gynecology 10/01/19 documented as of this encounter Additional Source Comments The information contained in this document represents components of the legal health record. It is not the complete legal health record.[facility]
--- OUTSIDE RECORDS SUMMARY | 2025-06-10 04:21 | XMS_ITS | Encounter Summary ---
Author Organization [facility] Address [address] [facility] [address] [place] [address] Phone Care Team Providers Care Charge Loader Name Role Phone Maximus Lucia MD Unavailable Keya Sage MD Unavailable Helena Cavanaugh BIOLOGY DEPARTMENT CHAIR Unavailable [phone] Diony Whitfield MD Unavailable Jodie Bonilla MD Unavailable Carlitos Zhang MD Unavailable [phone] Daivna Varghese MD Unavailable Annie Thomas CHEMICAL INSPECTOR Primary Care Provider Keya Sage MD Unavailable Nahid Rider MD Primary Care Provider [phone] Shemar Mancia PA-C Primary Care Provider [phone] Encounter Details Date Type Department Care Team (Late st Contact Info) Description 06/09/2019 Ancillary Orders [facility] Internal Medicine [address] [facility] [place] [address] ChenAnnie kenney CNP 40 [place] [address] [email or web address] Breast screening Social History Tobacco [...] Description 07/19/2025 7:20 AM EST Office Visit [facility] Internal Medicine 40 [place] [address] Shemar Mancia PA-C 40 [place] [address] [email or web address] 01/06/2026 7:40 AM EDT Office Visit [facility] [address] [place] [address] 3rd Floor, [address] [place] [address] [phone] Job Sheikh MD [address] [place] [address], [address] [place] [address] [phone] [email or web address] documented as of this encounter Results * [...] documented as of this encounter Care Teams Charge Loader Relationship Specialty Start Date End Date Annie Thomas CNP [address] [place] [address] [email or web address] PCP - General Internal Medicine 11/20/18 12/21/22 Nahid Rider MD [address] [place] [address] PCP - General Internal Medicine 12/22/22 09/03/24 Shemar Mancia PA-C [address] [place] [email or web address] PCP - General Physician Seafood Service Team Member 09/14/24 Maximus Lucia MD [address] [place] [address] Historical LMR Provider 05/08/17 0 eKya Sage MD [address] [place] [address] [email or web address] Historical LMR Provider 05/08/17 09/24/19 Helena Cavanaugh NP [address] [place] [address] Historical LMR Provider 05/08/17 0 Diony Whitfield MD [address] [place] [address] [email or web address] Historical LMR Provider 05/08/17 09/24/19 Jodie Bonilla MD [address] [place] [address] [facility], [place] [address] Historical LMR Provider 05/08/17 Carlitos Zhang MD [address] [place] [address] Historical LMR Provider 05/08/17 0 Davina Varghese MD [address] [address] [email or web address] Historical LMR Provider 05/08/17 09/24/19 Keya Sage MD [address] [place] [address], [address] [place] [address] Obstetrics and Gynecology 10/01/19 documented as of this encounter Additional Source Comments The information contained in this document represents components of the legal health record. It is not the complete legal health record.[facility]
--- OUTSIDE RECORDS SUMMARY | 2025-06-10 04:21 | XMS_ITS | Encounter Summary ---
Author Organization [facility] Address [address] [facility] [address] [place] [address] Phone Care Team Providers Care Contact Center Professional Name Role Phone Maximus Lucia MD Unavailable [phone] Keya Sage MD Unavailable Helena Cavanaugh AERIAL PLANTING AND CULTIVATION MANAGER Unavailable [phone] Diony Whitfield MD Unavailable Jodie Bonilla MD Unavailable Carlitos Zhang MD Unavailable [phone] Davina Varghese MD Unavailable Maximus Lucia MD Primary Care Provider Pcp, Unknown Primary Care Provider UnavailAnnie Holguin [facility] Primary Care Provider Keya Sage MD Unavailable [phone] Nahid Rider MD Primary Care Provider Shemar Mancia PA-C Primary Care Provider [phone] Encounter Details Date Type Department Care Team (Late st Contact Info) Description 07/30/2017 Ancillary Orders Virtual Department 30 [place] [address] Maximus Lucia MD [address] [place] [address] Breast screening Social History Tobacco Use Types [...] Description 07/19/2025 7:20 AM EST Office Visit [facility] Internal Medicine 40 [place] [address] Shemar Mancia PA-C 40 [place] [address] [email or web address] 01/06/2026 7:40 AM EDT Office Visit [facility] [address] [place] [address] 3rd Floor, [address] [place] [address] Job Sheikh MD [address] [facility], [address] [place] [address] [email or web address] documented as of this encounter Results * [...] documented as of this encounter Care Teams Contact Center Professional Relationship Specialty Start Date End Date Maximus Lucia MD [address] [place] [address] PCP - General 07/25/17 08/24/18 Pcp, Unknown PCP - General 08/25/18 11/19/18 Annie Thomas CNP 40 [place] [address] PCP - General Internal Medicine 11/20/18 12/21/22 Nahid Rider MD 40 [place] [address] PCP - General Internal Medicine 12/22/22 09/03/24 Shemar Mancia PA-C [address] [place] [address] PCP - General Physician Displayer Merchandise 09/14/24 Maximus Lucia MD [address] [place] [address] Historical LMR Provider 05/08/17 0 Keya Sage MD [address] [place] [address] Historical LMR Provider 05/08/17 09/24/19 Helena Cavanaugh NP 30 [place] [address] Historical LMR Provider 05/08/17 0 Diony Whitfield MD [address] [place] [address] Historical LMR Provider 05/08/17 09/24/19 Jodie Bonilla MD [address] [place] [address] [facility], [place] [address] Historical LMR Provider 05/08/17 Carlitos Zhang MD [address] [place] [address] Historical LMR Provider 05/08/17 0 Davina Varghese MD 46 [facility] [address] [place] [address] [email or web address] Historical LMR Provider 05/08/17 09/24/19 Keya Sage MD [address] [place] [address], [facility] [address] [place] [address] [email or web address] Obstetrics and Gynecology 10/01/19 documented as of this encounter Additional Source Comments The information contained in this document represents components of the legal health record. It is not the complete legal health record.[facility]
--- OUTSIDE RECORDS SUMMARY | 2025-06-10 04:21 | XMS_ITS | Encounter Summary ---
Author Organization [facility] Address [address] [facility] [address] [place] [address] Phone Care Team Providers Care Athletics Director Name Role Phone Annie Thomas [facility] Primary Care Provider Keya Sage MD Unavailable [phone] Nahid Rider MD Primary Care Provider [phone] Shemar Mancia PA-C Primary Care Provider [phone] Encounter Details Date Type Department Care Team (Late st Contact Info) Description 03/02/2022 Procedure Pass OR Admitting Dept - Virtual Department [address] [place] [address] Social History Tobacco Use Types Packs/Day Years [...] Description 07/19/2025 7:20 AM EST Office Visit [facility] Internal Medicine 40 [place], [place] [phone] Shemar Mancia PA-C 40 [place], [place] [phone] [email or web address] 01/06/2026 7:40 AM EDT Office Visit [facility] [address] [place] [address] 3rd Floor, [address] [place] [address] Job Sheikh MD [address] [place] [address], [address] [phone] [email or web address] documented as of this encounter Visit Diagnoses Not on filedocumented in this encounter Additional Health Concerns Assessment Noted Time PHQ-2 Depression Total Score: 1 12/17/19 20 11:39 AM EDT documented as of this encounter Care Teams Athletics Director Relationship Specialty Start Date End Date Annie Thomas CNP 40 [place] PCP - General Internal Medicine 11/20/18 12/21/22 Nahid Rider MD 40 [place] [address] [email or web address] PCP - General Internal Medicine 12/22/22 09/03/24 Shemar Mancia PA-C [address] [place] [address] [phone] PCP - General Physician Videotape Sales Representative 09/14/24 Keya Sage MD [address] [place] [address], [address] [place] [address] [email or web address] Obstetrics and Gynecology 10/01/19 documented as of this encounter Additional Source Comments The information contained in this document represents components of the legal health record. It is not the complete legal health record.[facility]
--- OUTSIDE RECORDS SUMMARY | 2025-06-10 04:21 | XMS_ITS | Encounter Summary ---
Author Organization [facility] Address [address] [facility] [address] [place] [address] Phone Care Team Providers Care Dispensary Clerk Name Role Phone Annie Thomas CNP Primary Care Provider Keya Sage MD Unavailable [phone] Nahid Rider MD Primary Care Provider [phone] Shemar Mancia PA-C Primary Care Provider [phone] Encounter Details Date Type Department Care Team (Late st Contact Info) Description 09/20/2020 Ancillary Orders [facility] Internal Medicine 40 [place], [place] [phone] Annie Thomas CNP 40 [place] [address] [email or web address] Breast screening Social History Tobacco Use [...] Description 07/19/2025 7:20 AM EST Office Visit [facility] Internal Medicine 40 [place] [address] Shemar Mancia PA-C 40 [place] [address] 01/06/2026 7:40 AM EDT Office Visit [facility] [address] [place] [address] 3rd Floor, [address] [place], [place] [phone] Job Sheikh MD 22 [facility], [address] [place] [address] [phone] documented as of this encounter Results * [...] There are scattered fibroglandular densities. Annie Thomas ICT TEACHER IMG MG EXAMS Final Result documented in this encounter Visit Diagnoses Diagnosis Breast screening Breast screening, unspecified Breast screening Breast screening, unspecified documented in this encounter Additional Health Concerns Assessment Noted Time PHQ-2 Depression Total Score: 1 12/17/19 11:39 AM EDT documented as of this encounter Care Teams Dispensary Clerk Relationship Specialty Start Date End Date Annie Thomas CNP [address] [place] [address] PCP - General Internal Medicine 11/20/18 12/21/22 Nahid Rider MD 40 [place] [address] PCP - General Internal Medicine 12/22/22 09/03/24 Shemar Mancia PA-C 40 [place] [address] [email or web address] PCP - General Physician Ingredient Handler 09/14/24 Keya Sage MD [address] [place] [address], [facility] [address] [place] [address] [email or web address] Obstetrics and Gynecology 10/01/19 documented as of this encounter Additional Source Comments The information contained in this document represents components of the legal health record. It is not the complete legal health record.[facility]
--- OUTSIDE RECORDS SUMMARY | 2025-06-10 04:21 | XMS_ITS | Encounter Summary ---
Author Organization [facility] Address [address] [address] Phone Care Team Providers Care Research Intern Name Role Phone Maximus Lucia MD Unavailable [phone] Keya Sage MD Unavailable Helena Cavanaugh AUTO PAINTER HELPER Unavailable [phone] Diony Whitfield MD Unavailable [phone] Jodie Bonilla MD Unavailable Carlitos Zhang MD Unavailable [phone] Davina Varghese MD Unavailable [phone] Maximus Lucia MD Primary Care Provider [phone] Pcp, Unknown Primary Care Provider UnavailAnnie Holguin [facility] Primary Care Provider Keya Sage MD Unavailable [phone] Nahid Rider MD Primary Care Provider [phone] Shemar Mancia PA-C Primary Care Provider [phone] Encounter Details Date Type Department Care Team (Late st Contact Info) Description 06/03/2018 Ancillary Orders [facility] [address] [place] [address] Kimberly Mckeon MD [address] [facility], [address] [place] [address] [email or web address] Breast screening Social History Tobacco Use Types [...] Description 07/19/2025 7:20 AM EST Office Visit [facility] Internal Medicine 40 [place] [address] Shemar Mancia PA-C 40 [place] [address] [email or web address] 01/06/2026 7:40 AM EDT Office Visit [facility] [address] [place] [address] 3rd Floor, [address] [place] [address] Job Sheikh MD [address] [facility], [address] [place] [address] [email or web address] documented as of this encounter Results * [...] documented as of this encounter Care Teams Research Intern Relationship Specialty Start Date End Date Maximus Lucia MD [address] [place] [address] PCP - General 07/25/17 08/24/18 Pcp, Unknown PCP - General 08/25/18 11/19/18 Annie Thomas CNP 40 [place] [address] PCP - General Internal Medicine 11/20/18 12/21/22 Nahid Rider MD 40 [place] [address] PCP - General Internal Medicine 12/22/22 09/03/24 Shemar Mancia PA-C 40 [place] [address] PCP - General Physician Activity Assistant 09/14/24 Maximus Lucia MD [address] [place] [address] Historical LMR Provider 05/08/17 0 Keya Sage MD [address] [place] [address], [address] [address] Historical LMR Provider 05/08/17 09/24/19 Helena Cavanaugh NP [address] [place] [address] Historical LMR Provider 05/08/17 0 Diony Whitfield MD [address] [place] [address], [address] [place] [address] Historical LMR Provider 05/08/17 09/24/19 Jodie Bonilla MD [address] [facility], [facility] [place] [address] Historical LMR Provider 05/08/17 Carlitos Zhang MD 61 [place] [address] Historical LMR Provider 05/08/17 0 Davina Varghese MD 46 [facility] [address] [place] [address] [email or web address] Historical LMR Provider 05/08/17 09/24/19 Keya Sage MD [address] [facility], [address] [place] [address] [email or web address] Obstetrics and Gynecology 10/01/19 documented as of this encounter Additional Source Comments The information contained in this document represents components of the legal health record. It is not the complete legal health record.[facility]
--- OUTSIDE RECORDS SUMMARY | 2025-06-10 04:21 | XMS_ITS | Clinical Summary ---
Author Organization [facility] Address [address] [facility] [address] [place] [address] Phone Care Team Providers Care Education Professor Name Role Phone Keya Sage MD Unavailable [phone] Shemar Mancia PA-C Primary Care Provider [phone] Allergies No known active allergies Medications levonorgestreL [...] imaging from May [address] [facility]. If on comparison current nodules are [...] years given contraceptive effectiveness; will discuss with CONTROL SYSTEMS DEVELOPER. Chest pain 12/17/2017 09/17/2024 Assessment & Plan [...] Department Care Team Description 03/29/2025 Orders Only [facility] [employer] [facility] [address] [place] [address] Provider, MD Ayaz from Last 3 Months Immunizations Immunization Administration [...] high school, GED, job training, learning the Pashto language, technical skills, or developing parenting skills)? [...] Description 07/19/2025 7:20 AM EST Office Visit [facility] [address] [place] [address] Shemar Mancia PA-C [address] [place] [address] [email or web address] 01/06/2026 7:40 AM EDT Office Visit [facility] [address] [place] [address] 3rd Floor, [address] [place] [address] Job Sheikh MD [address] [place] [address], [address] [place] [address] [email or web address] Health Maintenance Due Date Last Done Comments [...] 05/17/2023, 04/25/2022, Additional history exists COVID-19 VACCINE (3 - 2024- season) 2025 05/26/2021, 09/29/2020 BLOOD PRESSURE 04/30/2025 [...] 09/10/2019, Additional history exists IUD 03/02/2030 03/02/2022 RSV VACCINE (1 - 1-dose 75+ series) 01/18/2043 SMOKING STATUS SCREENING (Once After 26 Yrs) [...] this topic Medical Devices Implanted Type Area Residential Program Worker Device Identifier Shelf Expiration Date Model / Serial / Lot Device Contraceptive 52mg Iud Mirena - Must Order In Multiples Of 5 - [id number] Implanted:Qty: 1 on 03/02/2022 by Mamta Bowles MD at [facility] N/A: Uterus [employer] [facility] 05/21/2024 [id number] / / [id number] Procedures Procedure Name Priority Date/Time Associated Diagnosis Comments OUTSIDE PATHOLOGY Routine 03/26/2025 10: 50 AM EDT BI MAMMOGRAM SCREENING WITH TOMOSYNTHESIS WITH CAD (BILATERAL) Routine 02/17/2025 9:59 AM EDT Breast screening LIPID PANEL Routine 01/04/2025 8:54 AM EDT Routine general medical examination at a health care facility COMPREHENSIVE METABOLIC PANEL (CMP) Routine 01/04/2025 8:54 AM EDT Routine general [...] PA-C IMG MG EXAMS Final Result * (ABNORMAL) Comprehensive metabolic panel (01/04/2025 8:54 AM EDT) SODIUM 140 133 - 146 mmol/L [facility] POTASSIUM 4.6 3.3 - 5.1 mmol/L [facility] CHLORIDE 104 96 - 108 mmol/L [facility] CO2 27 21 - 35 mmol/L [facility] BUN 13 6 - 19 mg/dL [facility] CREATININE 0.70 0.5 - 1.5 mg/dL [facility] GLUCOSE 105(H) 70 - 99 mg/dL [facility] ALBUMIN 4.3 3.9 - 4.8 g/dL [facility] TOTAL PROTEIN 7.7 6.5 - 8.0 g/dL [facility] CALCIUM 9.6 8.4 - 10.3 mg/dL [facility] ALKALINE PHOSPHATASE 95 39 - 117 U/L [facility] TOTAL BILIRUBIN 0.4 0.0 - 1.2 mg/dL [facility] AST 26 0 - 37 U/L [facility] ALT 34 0 - 40 U/L [facility] GLOBULIN 3.4 1 - 4.8 g/dL [facility] EGFR 101 >59 mL/min/1.7 3m2 [facility] Comment:Estimated glomerular filtration rate calculated using the CKD-EPI refit equation. ANION GAP 14 10 - 20 mmol/L [facility] Blood 01/04/2025 8:54 AM EDT 01/04/2025 8:59 AM EDT us Shemar Mancia PA-C LAB BLOOD BKR ORDERABLES Lanette l Result Performing Organization Address City/[facility] Co de Phone Number [address] [address] * Lipid panel (01/04/2025 8:54 AM EDT) HDL 54 mg/dL [facility] Comment: Interpretation <40 mg/dL: Low HDL cholesterol (major risk factor for CHD) Greater than or equal to 60 mg/dL: High HDL cholesterol ( negative risk factor for CHD) HDL - cholesterol is affected by a number of factors, e.g. smoking, excerise, hormones, sex and age. CHOLESTEROL 194 0 - 240 mg/dL [facility] TRIGLYCERIDES 135 30 - 160 mg/dL [facility] LDL 113 50 - 129 mg/dL [facility] Comment: LDL levels in terms of risk for coronary heart disease: <100 mg/dL: Optimal 100-129 mg/dL: Near or above optimal 130-159 mg/dL: Borderline high 160-189 mg/dL: High >190 mg/dL: Very High CARDIAC RISK RATIO 3.6 3.3 - 4.4 [facility] Blood 01/04/2025 8:54 AM EDT 01/04/2025 8:59 AM EDT us Shemar Mancia PA-C LAB BLOOD BKR ORDERABLES Lanette l Result Performing Organization Address City/State/[facility] Co de Phone Number [address] [address] * Pap Test (09/01/2024 12:00 AM EST) Report [address] [address] Printing Manager: Mino Pollard MD CONTROL SYSTEMS DEVELOPER Cytology Report FINAL DIAGNOSIS A. PAP SMEAR (THIN PREP) CE: SPECIMEN ADEQUACY: Satisfactory for evaluation; transformation zone present. INTERPRETATION: NEGATIVE FOR INTRAEPITHELIAL LESION OR MALIGNANCY. This specimen was analyzed by the automated ThinPrep Imaging System (Unbounce.) and manually rescreened by a design engineering technician and/or pathologist. Due to blood, the specimen [...] by real-time polymerase chain reaction (PCR) at [facility], [address] [place] [address] using the FDA-approved BD Onclarity9 HPV Assay with extended genotyping. Uses of the assay in scenarios other than those approved by the FDA should be considered off-label use. The accuracy and precision of this test for all other off-label specimen sources has been verified in the Cytopathology Laboratory of the [facility] and has not been cleared or approved [...] : 1970 (Age: 54) Sex: F Institution: [facility] Location: [facility] Date of Collection: 09/01/2024 Date of Reported: 09/07/2024 10:54 Results to: Millie Davalos [facility] Final Diagnosis A. PAP SMEAR (THIN PREP) CE: SPECIMEN ADEQUACY: Satisfactory for evaluation; transformation zone present. INTERPRETATION: NEGATIVE FOR INTRAEPITHELIAL LESION OR MALIGNANCY. This specimen was analyzed by the automated ThinPrep Imaging System (Unbounce.) and manually rescreened by a design engineering technician and/or pathologist. Due to blood, the specimen was reprocessed with 10% Glacial Acetic Acid. [facility] Results\Inte rpretation A. PAP SMEAR (THIN PREP) CE: High-risk HPV Panel w/ extended genotyping NEG HPV 16-NEG HPV 18-NEG HPV 45-NEG HPV 33/58-NEG HPV 31-NEG HPV 56/59/66-NEG HPV 51-NEG HPV 52-NEG HPV 35/39/68-NEG Performed by real-time polymerase chain reaction (PCR) at [facility], [address] [place] [address] using the FDA-approved BD Onclarity HPV Assay with extended genotyping. Uses of the assay in scenarios other than those approved by the FDA should be considered off-label use. The accuracy and precision of this test for all other off-label specimen sources has been verified in the Cytopathology Laboratory of the [facility] and has not been cleared or approved by the U.S. Food and Drug Administration. Clinical correlation is advised. The assay assesses the E6/E7 DNA target and utilizes human beta globin as an internal control. Cytology and HPV testing are screening assays and should not be used as the sole means of detecting cancer. False-positives and false-negatives can occur. [facility] Conversion Type (Conversion Source) 09/01/2024 09/02/2024 9:15 AM EST us Millie Darling MD CYTOLOGY ORDER CLAIRE Edited Result - Final [facility] [address] [place] [address] * COLONOSCOPY FOR RESULT ENTRY ONLY (01/27/2020) us Historical Provider HEALTH MAINTENANCE Final Result from Last 3 Months or Most Recently Relevant to Health Maintenance Insurance O O O O O O O HMO HMO Member Subscriber Plan / Payer (Ef fective 2016-Present) Name:FernandoShamar swansonll Relation to Subscriber:Spouse Name:DEEPTI MONROE Date of :1966 (Home) Address: [address] [place] [address] Payer ID:Not on file Type:O Address: [place] [id number] Care Teams Education Professor Relationship Specialty Start Date End Date Shemar Mancia PA-C [address] [place] [address] [email or web address] PCP - General Physician Cone Worker 09/14/24 Keya Sage MD [address] [place] [address], [facility] [address] [place] [address] [email or web address] Obstetrics and Gynecology 10/01/19 Additional Source Comments The information contained in this document represents components of the legal health record. It is not the complete legal health record.[facility]
--- OUTSIDE RECORDS SUMMARY | 2025-06-10 04:21 | XMS_ITS | Patient Health Record ---
Author Organization [facility] Address [address] [place] [address] Care Team Providers Care Quantity Surveyor Name Role Phone Shemar Mancia M.D. Primary Care Provider Ethan Pinedo Unavailable [phone] Allergies No Known Allergies Reason For Referral No Information Medications Medication SIG (Take, Route, Frequency, Duration) Notes Start Date End Date Status Omeprazole 40 MG Capsule Delayed Release 1 Orally QAM; Duration: 30 day(s) 01/06/2020 Not-Taking/P RN Olmesartan Medoxomil 20 MG Tablet 1 tablet Orally Once a day; Duration: 30 day(s) Active Metoprolol Succinate 25 MG Capsule ER 24 Hour Sprinkle 1 capsule Orally Once a day; Duration: 30 day(s) Active Immunizations Vaccine Route Administration Date Status Comme nts Influenza Unknown 04/28/2018 Administered Influenza Unknown 04/21/2019 Administered Influenza Unknown 04/07/2024 Administered Social History Tobacco Use: Social History Observation Description Date Details (start date - stop date) Never Smoker NA - NA Social History Drugs/Alcohol: Social Info Question Answer Notes Alcohol Screen Did you have a drink containing alcohol in the past year? Yes How often did you have a drink containing alcohol in the past year? Monthly or less (1 point) How many drinks did you have on a typical day when you were drinking in the past year? 1 or 2 drinks (0 point) How often did you have 6 or more drinks on one occasion in the past year? Never (0 point) Points 1 Interpretation Negative Tobacco Use: Social Info Question Answer Notes Tobacco Use/Smoking Patient is a nonsmoker Additional Details Category Social Info Options Details Miscellaneous: Marital status: Occupation: Works from home in [employer]s [employer] business Section Notes: Nonsmoker; no sig alcohol Nonsmoker; no sig alcohol Nonsmoker; no sig alcohol Nonsmoker; no sig alcohol Problems Problem Type SNOMED Code ICD Code Onset Dates Problem Status W/U Status Risk Notes Problem Screening for malignant neoplasm of colon (809592126) Encounter for screening for malignant neoplasm of colon (Z12.11) Active confirmed Problem Constipation (19832470) Constipation (K59.00) Active confirmed Problem Right upper quadrant pain (644978182) Right upper quadrant pain (R10.11) Active confirmed Problem Abnormal findings diagnostic imaging of liver and biliary tract (807308186) Abnormal CT of liver (R93.2) Active confirmed Problem Family History of Cancer of Colon (Situation) (862864227) Family history of colon cancer (Z80.0) Active confirmed Problem Left upper quadrant pain (950390780) Abdominal pain, LUQ (R10.12) Active confirmed Problem Hemangioma of intra-abdominal structure (092677384) Liver hemangioma (D18.03) Active confirmed Problem History of adenomatous polyp of colon (733404962) History of adenomatous polyp of colon (Z86.0101) Active confirmed Vital Signs Heart Rate 99.3 /min 04/16/2025 Temperature 99.3 degrees Fahrenheit 04/16/2025 Blood pressure diastolic 01 mm Hg 04/16/2025 Height 63 in 04/16/2025 Blood pressure systolic 001 mm Hg 04/16/2025 Weight 231.2 lbs 04/16/2025 BMI 40.95 kg/m2 04/16/2025 Procedures Procedure Date Ordered Date Performed Result Body Sit e COLONOSCOPY 04/16/2025 N/A Encounters Encounter Location Date Provider Diagnosis [facility] [address] [place] [phone] 04/16/2025 Ethan Valente Encounter for screening for malignant neoplasm of colon Z12.11 ; Constipation K59.00 ; Family history of colon cancer Z80.0 and History of adenomatous polyp of colon Z86.0101 [facility] [address] [place] [phone] 04/22/2025 Ethan Valente Assessments Encounter Date Diagnosis (ICD Code) Assessment Notes Treatment Notes Treatment Clinical Notes Section Notes 04/16/2025 Encounter for screening for malignant neoplasm of colon (ICD-10 - Z12.11) Overall, Demetri appears quite well. We did review her GI procedures from 2019. We did review the presence of the hiatal hernia seen on the upper endoscopy but at this point she is asymptomatic in that regard. Therefore, I do not think she needs to be on any acid suppression nor have a repeat endoscopy. I did review that diet and weight loss would help prevent problems with reflux in the future. I did recommend a follow-up colonoscopy for further screening given the family history of colon cancer in her mother at an early age and her own history of a tubular adenoma removed just over 5 years ago. We did review the rationale for this in regard to colon cancer prevention. Full consent has been obtained from her for the colonoscopy, including risks of bleeding and perforation. The procedure will be done with monitored anesthesia care. In regard to her occasional constipation and hemorrhoidal discomfort I did recommend using a little MiraLAX and/or Metamucil with a lot of water on a daily or every other day basis to try to prevent the constipation and hemorrhoidal discomfort. We did review that there is always a surgical option for hemorrhoids but at this point her symptoms do not seem significant enough to warrant that. I did advise her to certainly let me know if things become more problematic in that regard. In regard to the occasional right lower quadrant discomfort this seems consistent with some intestinal spasm as it is quite fleeting, resolves with a bowel movement, and has no associated worrisome symptoms. I did advise her to let me know if that worsens as well. Demetri was comfortable with this plan. Thank you again for allowing me to participate in Demetri's care. I shall continue to keep you advised of her progress. 04/16/2025 Constipation (ICD-10 - K59.00) You can try some daily Miralax or Metamucil fiber with a lot of water to prevent constipation and avoid the hemorrhoidal discomfort Overall, Demetri appears quite well. We did review her GI procedures from 2019. We did review the presence of the hiatal hernia seen on the upper endoscopy but at this point she is asymptomatic in that regard. Therefore, I do not think she needs to be on any acid suppression nor have a repeat endoscopy. I did review that diet and weight loss would help prevent problems with reflux in the future. I did recommend a follow-up colonoscopy for further screening given the family history of colon cancer in her mother at an early age and her own history of a tubular adenoma removed just over 5 years ago. We did review the rationale for this in regard to colon cancer prevention. Full consent has been obtained from her for the colonoscopy, including risks of bleeding and perforation. The procedure will be done with monitored anesthesia care. In regard to her occasional constipation and hemorrhoidal discomfort I did recommend using a little MiraLAX and/or Metamucil with a lot of water on a daily or every other day basis to try to prevent the constipation and hemorrhoidal discomfort. We did review that there is always a surgical option for hemorrhoids but at this point her symptoms do not seem significant enough to warrant that. I did advise her to certainly let me know if things become more problematic in that regard. In regard to the occasional right lower quadrant discomfort this seems consistent with some intestinal spasm as it is quite fleeting, resolves with a bowel movement, and has no associated worrisome symptoms. I did advise her to let me know if that worsens as well. Demetri was comfortable with this plan. Thank you again for allowing me to participate in Demetri's care. I shall continue to keep you advised of her progress. 04/16/2025 Family history of colon cancer (ICD-10 - Z80.0) Overall, Demetri appears quite well. We did review her GI procedures from 2020. We did review the presence of the hiatal hernia seen on the upper endoscopy but at this point she is asymptomatic in that regard. Therefore, I do not think she needs to be on any acid suppression nor have a repeat endoscopy. I did review that diet and weight loss would help prevent problems with reflux in the future. I did recommend a follow-up colonoscopy for further screening given the family history of colon cancer in her mother at an early age and her own history of a tubular adenoma removed just over 5 years ago. We did review the rationale for this in regard to colon cancer prevention. Full consent has been obtained from her for the colonoscopy, including risks of bleeding and perforation. The procedure will be done with monitored anesthesia care. In regard to her occasional constipation and hemorrhoidal discomfort I did recommend using a little MiraLAX and/or Metamucil with a lot of water on a daily or every other day basis to try to prevent the constipation and hemorrhoidal discomfort. We did review that there is always a surgical option for hemorrhoids but at this point her symptoms do not seem significant enough to warrant that. I did advise her to certainly let me know if things become more problematic in that regard. In regard to the occasional right lower quadrant discomfort this seems consistent with some intestinal spasm as it is quite fleeting, resolves with a bowel movement, and has no associated worrisome symptoms. I did advise her to let me know if that worsens as well. Demetri was comfortable with this plan. Thank you again for allowing me to participate in Demetri's care. I shall continue to keep you advised of her progress. 04/16/2025 History of adenomatous polyp of colon (ICD-10 - Z86.0101) Overall, Demetri appears quite well. We did review her GI procedures from 2019. We did review the presence of the hiatal hernia seen on the upper endoscopy but at this point she is asymptomatic in that regard. Therefore, I do not think she needs to be on any acid suppression nor have a repeat endoscopy. I did review that diet and weight loss would help prevent problems with reflux in the future. I did recommend a follow-up colonoscopy for further screening given the family history of colon cancer in her mother at an early age and her own history of a tubular adenoma removed just over 5 years ago. We did review the rationale for this in regard to colon cancer prevention. Full consent has been obtained from her for the colonoscopy, including risks of bleeding and perforation. The procedure will be done with monitored anesthesia care. In regard to her occasional constipation and hemorrhoidal discomfort I did recommend using a little MiraLAX and/or Metamucil with a lot of water on a daily or every other day basis to try to prevent the constipation and hemorrhoidal discomfort. We did review that there is always a surgical option for hemorrhoids but at this point her symptoms do not seem significant enough to warrant that. I did advise her to certainly let me know if things become more problematic in that regard. In regard to the occasional right lower quadrant discomfort this seems consistent with some intestinal spasm as it is quite fleeting, resolves with a bowel movement, and has no associated worrisome symptoms. I did advise her to let me know if that worsens as well. Demetri was comfortable with this plan. Thank you again for allowing me to participate in Demetri's care. I shall continue to keep you advised of her progress. Plan Of Treatment Pending Test Test Name Order Date COLONOSCOPY 04/16/2025 LIVER PROFILE 07/25/2018 Future Test Test Name Order Date COLONOSCOPY 08/24/2014 COLONOSCOPY 10/30/2019 Next Appt Details Provider Name:Ethan Valente , 06/14/2025 12:40:00 PM, [address] [place] [address] , [place], [place], [phone], Insurance Providers Payer Name Payer Address Payer Phone Subscriber Number Group Number Insured Name Patient Relationship to Insured Coverage Start Date Coverage End Date [facility] [address] [place] [phone] [id number] DEMETRI MONROE Self - patient is the insured Medical (General) History Medical History History ICD Code Colonoscopy 04/21/2009 and - neg. for polyps- only internal and external hemorrhoids Denies IN,DM,CVA,Lung disease,renal dise ase On BP meds for reported bord jenny low EF- -neg. ETT- followed by a sanitary inspector 3 cm hemangioma in the left lobe of the liver- -seen on a CAT scan in 2017, and on ultrasounds in August of 2018 and 2019. Screening colonoscopy in Jan with a small tubular adenoma removed, internal and external hemorrhoids Upper endoscopy in January 2020 revealed a small to moderate size hiatal hernia and benign gastric polyp. There was no evidence of any esophagitis or Ashton's esophagus Surgical History Surgery Date(Month/Year) Cholecystectomy Tonsillectomy Knee surgery
--- OUTSIDE RECORDS SUMMARY | 2025-06-10 04:21 | XMS_ITS | Encounter Summary ---
Author Organization [facility] Address [address] [facility] [address] [place] [address] Phone Care Team Providers Care Lead Sustainability Specialist Name Role Phone Annie Thomas [facility] Primary Care Provider Keya Sage MD Unavailable [phone] Nahid Rider MD Primary Care Provider [phone] Shemar Mancia PA-C Primary Care Provider Encounter Details Date Type Department Care Team (Late Contact Info) Description 01/02/2022 Procedure Pass [facility] [address] [place] [id number] Social History Tobacco Use Types Packs/Day Years [...] AM EST Office Visit [facility] [place] [facility] 40 [place], [place] [phone] Shemar Mancia PA-C 40 [place], [place] [phone] [email or web address] 01/06/2026 7:40 AM EDT Office Visit [facility] [address] [facility] 3rd Floor, [address] [place] [address] Job Sheikh MD [address] [place] [address], [facility] 301 [place], [place] [phone] [email or web address] documented as of this encounter Visit Diagnoses Not on filedocumented in this encounter Additional Health Concerns Assessment Noted Time PHQ-2 Depression Total Score: 1 12/17/19 20 11:39 AM EDT documented as of this encounter Care Teams Lead Sustainability Specialist Relationship Specialty Start Date End Date Annie Thomas CNP 40 [place] [address] [email or web address] PCP - General Internal Medicine 11/20/18 12/21/22 Nahid Rider MD 40 [place] [address] [email or web address] PCP - General Internal Medicine 12/22/22 09/03/24 Shemar Mancia PA-C 40 [place], [place] [phone] [email or web address] PCP - General Physician Turnstile Attendant 09/14/24 Keya Sage MD [address] [place] [address], [address] [place] [address] [email or web address] Obstetrics and Gynecology 10/01/19 documented as of this encounter Additional Source Comments The information contained in this document represents components of the legal health record. It is not the complete legal health record.[facility]
--- OUTSIDE RECORDS SUMMARY | 2025-06-10 04:21 | XMS_ITS | Encounter Summary ---
Author Organization [facility] Address [address] [place] [address] Phone Care Team Providers Care Special Police Officer Name Role Phone Keya Sage MD Unavailable [phone] Shemar Mancia PA-C Primary Care Provider [phone] Encounter Details Date Type Department Care Team (Late st Contact Info) Description 09/17/2024 Procedure Pass [facility] - [address] [address] Social History Tobacco Use Types Packs/Day Years [...] Description 07/19/2025 7:20 AM EST Office Visit [facility] Internal Medicine 40 [place], [place] [phone] Shemar Mancia PA-C 40 [place] [address] 01/06/2026 7:40 AM EDT Office Visit [facility] [address] [place] [address] 3rd [facility], [address] [place] [address] [phone] Job Sheikh MD [address] [place] [address], [address] [phone] documented as of this encounter Visit Diagnoses Not on filedocumented in this encounter Additional Health Concerns Assessment Noted Time PHQ-2 Depression Total Score: 0 09/14/19 25 6:05 PM EST documented as of this encounter Care Teams Special Police Officer Relationship Specialty Start Date End Date Shemar Mancia PA-C [address] [place] [address] PCP - General Physician Site Operations Manager 09/14/24 Keya Sage MD [address] [place] [address], [facility] [address] [place] [address] [email or web address] Obstetrics and Gynecology 10/01/19 documented as of this encounter Additional Source Comments The information contained in this document represents components of the legal health record. It is not the complete legal health record.[facility]
--- OUTSIDE RECORDS SUMMARY | 2025-06-10 04:22 | XMS_ITS | Encounter Summary ---
Author Organization [facility] Address [address] [place] [address] Phone Care Team Providers Care Nail Professional Name Role Phone Keya Sage MD Unavailable [phone] Nahid Rider MD Primary Care Provider [phone] Shemar Mancia PA-C Primary Care Provider [phone] Encounter Details Date Type Department Care Team (Late st Contact Info) Description 08/24/2024 Procedure Pass [facility] - [address] [place] [address] Social History Tobacco Use Types Packs/Day Years [...] Description 07/19/2025 7:20 AM EST Office Visit [facility] Internal Medicine 40 [place], [place] [phone] Shemar Mancia PA-C 40 [place] [address] [email or web address] 01/06/2026 7:40 AM EDT Office Visit [facility] [address] [place] [address] 3rd Floor, [address] [place] [address] Job Sheikh MD [address] [place] [address], [address] [address] documented as of this encounter Visit Diagnoses Not on filedocumented in this encounter Additional Health Concerns Assessment Noted Time PHQ-2 Depression Total Score: 0 09/14/19 25 6:05 PM EST documented as of this encounter Care Teams Nail Professional Relationship Specialty Start Date End Date Nahid Rider MD [address] [place] [address] PCP - General Internal Medicine 12/22/22 09/03/24 Shemar Mancia PA-C [address] [place] [address] [email or web address] PCP - General Physician Novelty Worker 09/14/24 Keya Sage MD [address] [place] [address], [place] [address] [place] [address] [email or web address] Obstetrics and Gynecology 10/01/19 documented as of this encounter Additional Source Comments The information contained in this document represents components of the legal health record. It is not the complete legal health record.[facility]
--- OUTSIDE RECORDS SUMMARY | 2025-06-10 04:22 | XMS_ITS | Encounter Summary ---
Author Organization [facility] Address [address] [place] [address] Phone Care Team Providers Care Finish Sander Name Role Phone Keya Sage MD Unavailable [phone] Shemar Mancia PA-C Primary Care Provider [phone] Encounter Details Date Type Department Care Team (Latest Contact Info) Description 02/17/2025 Ancillary Orders [facility] Internal Medicine 40 [place], [place] [phone] Shemar Mancia PA-C 40 [place], [place] [phone] [email or web address] Breast screening (Primary Dx) Social History Tobacco [...] Description 07/19/2025 7:20 AM EST Office Visit [facility] 40 [place] [address] Shemar Mancia PA-C 40 [place] [address] 01/06/2026 7:40 AM EDT Office Visit [facility] [address] [place] [address] 3rd Floor, [address] [place] [address] [phone] Job Sheikh MD 22 [facility], [address] [phone] documented as of this encounter Results * [...] documented as of this encounter Care Teams Finish Sander Relationship Specialty Start Date End Date Shemar Mancia PA-C [address] [place] [address] PCP - General Physician Creative Intern 09/14/24 Keya Sage MD [address] [place] [address], [address] [place] [address] [email or web address] Obstetrics and Gynecology 10/01/19 documented as of this encounter Additional Source Comments The information contained in this document represents components of the legal health record. It is not the complete legal health record.[facility]
== END 2025-06-09 15:46 | disposition home or self-care (01) ==
LOC: HO.HMGAL 15:46
PROVIDERS: Visit Provider Registered Nurse Emergency
DX: J30.89 Other allergic rhinitis (principal)
CPT/HCPCS: 95117; 95165

== ENCOUNTER 2025-06-14 11:27 | Day surgery (SDC) | payer OTHER, SELFPAY ==
--- OUTSIDE RECORDS SUMMARY | 2025-06-10 19:36 | XMS_ITS | Encounter Summary ---
Author Organization [facility] Address [address] [address] Phone Care Team Providers Care Lap Checker Name Role Phone Maximus Lucia MD Unavailable Keya Sage MD Unavailable [phone] Helena Cavanaugh ACTUARIAL CLERK Unavailable [phone] Diony [place] MD Unavailable [phone] Jodie Bonilla MD Unavailable Carlitos Zhang MD Unavailable [phone] Davina Varghese MD Unavailable [phone] Maximus Lucia MD Primary Care Provider [phone] Pcp, Unknown Primary Care Provider UnavailAnnie Holguin [facility] Primary Care Provider Keya Sage MD Unavailable [phone] Nahid Rider MD Primary Care Provider [phone] Shemar Mancia PA-C Primary Care Provider [phone] Encounter Details Date Type Department Care Team (Late st Contact Info) Description 06/03/2018 Ancillary Orders [facility] [address] [place] [address] Kimberly Mckeon MD 22 [facility], [address] [place] [address] [email or web address] Breast screening Social History Tobacco Use Types [...] Description 07/19/2025 7:20 AM EST Office Visit [facility] Internal Medicine 40 [place] [address] Shemar Mancia PA-C 40 [place] [address] 01/06/2026 7:40 AM EDT Office Visit [facility] [address] [place] [address] 3rd Floor, [address] [place] [address] Job Sheikh MD 22 [facility], [address] [place] [address] [email or web address] documented as of this encounter Results * [...] documented as of this encounter Care Teams Lap Checker Relationship Specialty Start Date End Date Maximus Lucia MD [address] [place] [address] PCP - General 07/25/17 08/24/18 Pcp, Unknown PCP - General 08/25/18 11/19/18 Annie Thomas CNP 40 [place] [address] PCP - General Internal Medicine 11/20/18 12/21/22 Nahid Rider MD 40 [place] [address] PCP - General Internal Medicine 12/22/22 09/03/24 Shemar Mancia PA-C 40 [place] [address] PCP - General Physician Carroting Machine Offbearer 09/14/24 Maximus Lucia MD [address] [place] [address] Historical LMR Provider 05/08/17 0 Keya Sage MD [address] [place] [address], [address] [address] Historical LMR Provider 05/08/17 09/24/19 Helena Cavanaugh NP [address] [place] [address] Historical LMR Provider 05/08/17 0 Diony [place] MD [address] [place] [address], [address] [place] [address] Historical LMR Provider 05/08/17 09/24/19 Jodie Bonilla MD 4 [facility], [facility] [place] [address] Historical LMR Provider 05/08/17 Carlitos Zhang MD [address] [place] [address] Historical LMR Provider 05/08/17 0 Davina Varghese MD 46 [facility] [address] [place] [address] [email or web address] Historical LMR Provider 05/08/17 09/24/19 Keya Sage MD 22 [facility], [address] [place] [address] Obstetrics and Gynecology 10/01/19 documented as of this encounter Additional Source Comments The information contained in this document represents components of the legal health record. It is not the complete legal health record.[facility]
--- OUTSIDE RECORDS SUMMARY | 2025-06-10 19:36 | XMS_ITS | Encounter Summary ---
Author Organization [facility] Address [address] [facility] [address] [place] [address] Phone Care Team Providers Care Advisory Intern Name Role Phone Keya Sage MD Unavailable [phone] Nahid Rider MD Primary Care Provider [phone] Shemar Mancia PA-C Primary Care Provider [phone] Encounter Details Date Type Department Care Team (Latest Contact Info) Description 06/20/2023 Transcribe Orders Virtual Department [address] [place] [address] Keya Sage MD [address] [place] [address], [address] [place] [address] [email or web address] Breast screening (Primary Dx) Social History Tobacco [...] 7:20 AM EST Office Visit [facility] Internal Medicine 40 [place] [address] Shemar Mancia PA-C 40 [place] [address] [email or web address] 01/06/2026 7:40 AM EDT Office Visit [facility] [address] [place] [address] 3rd Floor, [address] [place] [address] [phone] Job Sheikh MD 22 [facility], [address] [place] [address] [phone] documented as of this encounter Results * [...] documented as of this encounter Care Teams Advisory Intern Relationship Specialty Start Date End Date Nahid Rider MD [address] [place] [address] PCP - General Internal Medicine 12/22/22 09/03/24 Shemar Mancia PA-C 40 [place] [address] PCP - General Physician Speech Therapist Early Intervention 09/14/24 Keya Sage MD [address] [place] [address], [address] [place] [address] [place] [address] [email or web address] Obstetrics and Gynecology 10/01/19 documented as of this encounter Additional Source Comments The information contained in this document represents components of the legal health record. It is not the complete legal health record.[facility]
--- OUTSIDE RECORDS SUMMARY | 2025-06-10 19:36 | XMS_ITS | Encounter Summary ---
Author Organization [facility] Address [address] [facility] [address] [place] [address] Phone Care Team Providers Care Land Mobile Radio Technician Name Role Phone Keya Sage MD Unavailable [phone] Nahid Rider MD Primary Care Provider [phone] Shemar Mancia PA-C Primary Care Provider Encounter Details Date Type Department Care Team (Late st Contact Info) Description 06/20/2023 Procedure Pass [facility] - [address] [place] [address] Social History Tobacco Use Types Packs/Day Years [...] Description 07/19/2025 7:20 AM EST Office Visit [facility] Internal Medicine 40 [place], [place] [phone] Shemar Mancia PA-C 40 [place] [address] 01/06/2026 7:40 AM EDT Office Visit [facility] 3rd Floor, [address] [place] [address] Job Sheikh MD [address] [place] [address], [address] [address] documented as of this encounter Visit Diagnoses Not on filedocumented in this encounter Additional Health Concerns Assessment Noted Time PHQ-2 Depression Total Score: 1 12/17/19 20 11:39 AM EDT documented as of this encounter Care Teams Land Mobile Radio Technician Relationship Specialty Start Date End Date Nahid Rider MD 40 [place] [address] PCP - General Internal Medicine 12/22/22 09/03/24 Shemar Mancia PA-C 40 [place] [address] [email or web address] PCP - General Physician Ironing Pleater 09/14/24 Keya Sage MD [address] [place] [address], [address] [address] [email or web address] Obstetrics and Gynecology 10/01/19 documented as of this encounter Additional Source Comments The information contained in this document represents components of the legal health record. It is not the complete legal health record.[facility]
--- OUTSIDE RECORDS SUMMARY | 2025-06-10 19:36 | XMS_ITS | Encounter Summary ---
Author Organization [facility] Address [address] [place] [address] Phone Care Team Providers Care Legal Writing Professor Name Role Phone Keya Sage MD Unavailable [phone] Shemar Mancia PA-C Primary Care Provider [phone] Encounter Details Date Type Department Care Team (Late st Contact Info) Description 09/17/2024 Procedure Pass [facility], [address] [address] Social History Tobacco Use Types Packs/Day Years [...] Description 07/19/2025 7:20 AM EST Office Visit [facility] Internal Medicine 40 [place], [place] [phone] Shemar Mancia PA-C [address] [place] [address] 01/06/2026 7:40 AM EDT Office Visit [facility] [address] [place] [address] 3rd [facility], [address] [place] [address] [phone] Job Sheikh MD [address] [place] [address], [address] [phone] documented as of this encounter Visit Diagnoses Not on filedocumented in this encounter Additional Health Concerns Assessment Noted Time PHQ-2 Depression Total Score: 0 09/14/19 25 6:05 PM EST documented as of this encounter Care Teams Legal Writing Professor Relationship Specialty Start Date End Date Shemar Mancia PA-C [address] [place] [address] [email or web address] PCP - General Physician Fine Dining Server 09/14/24 Keya Sage MD [address] [place] [address], [facility] [address] [place] [address] [email or web address] Obstetrics and Gynecology 10/01/19 documented as of this encounter Additional Source Comments The information contained in this document represents components of the legal health record. It is not the complete legal health record.[facility]
--- OUTSIDE RECORDS SUMMARY | 2025-06-10 19:36 | XMS_ITS | Encounter Summary ---
Author Organization [facility] Address 399 [facility] [address] [place] [address] Phone Care Team Providers Care Car Body Mechanic Name Role Phone Annie Thomas CNP Primary Care Provider Keya Sage MD Unavailable [phone] Nahid Rider MD Primary Care Provider [phone] Shemar Mancia PA-C Primary Care Provider [phone] Encounter Details Date Type Department Care Team (Late st Contact Info) Description 09/20/2020 Procedure Pass [facility] - [address] [place] [address] Social History Tobacco Use Types Packs/Day Years [...] Description 07/19/2025 7:20 AM EST Office Visit [facility] Internal Medicine 40 [place], [place] [phone] Shemar Mancia PA-C 40 [place], [place] [phone] [email or web address] 01/06/2026 7:40 AM EDT Office Visit [facility] [address] [place] [address] 3rd Floor, [address] [place] [address] Job Sheikh MD [address] [place] [address], [facility] 301 [place], [place] [phone] [email or web address] documented as of this encounter Visit Diagnoses Not on filedocumented in this encounter Additional Health Concerns Assessment Noted Time PHQ-2 Depression Total Score: 1 12/17/19 20 11:39 AM EDT documented as of this encounter Care Teams Car Body Mechanic Relationship Specialty Start Date End Date Annie Thomas CNP 40 [place] [address] PCP - General Internal Medicine 11/20/18 12/21/22 Nahid Rider MD [address] [place] [address] PCP - General Internal Medicine 12/22/22 09/03/24 Shemar Mancia PA-C [address] [place] [address] [phone] PCP - General Physician Auditing Manager 09/14/24 Keya Sage MD [address] [place] [address], [address] [place] [address] [email or web address] Obstetrics and Gynecology 10/01/19 documented as of this encounter Additional Source Comments The information contained in this document represents components of the legal health record. It is not the complete legal health record.[facility]
--- OUTSIDE RECORDS SUMMARY | 2025-06-10 19:36 | XMS_ITS | Encounter Summary ---
Author Organization [facility] Address 399 [facility] [address] [place] [address] Phone Care Team Providers Care Electronic Game Developer Name Role Phone Annie Thomas [facility] Primary Care Provider Keya Sage MD Unavailable [phone] Nahid Rider MD Primary Care Provider [phone] Shemar Mancia PA-C Primary Care Provider [phone] Encounter Details Date Type Department Care Team (Late st Contact Info) Description 03/02/2022 Procedure Pass [place] Admitting Dept - Virtual Department [address] [place] [address] Social History Tobacco Use Types Packs/Day Years [...] Description 07/19/2025 7:20 AM EST Office Visit [facility] Internal Medicine 40 [place], [place] [phone] Shemar aMncia PA-C 40 [place], [place] [phone] [email or web address] 01/06/2026 7:40 AM EDT Office Visit [facility] [address] [place] [address] 3rd Floor, [address] [place] [address] Job Sheikh MD [address] [place] [address], [address] 984[address] [email or web address] documented as of this encounter Visit Diagnoses Not on filedocumented in this encounter Additional Health Concerns Assessment Noted Time PHQ-2 Depression Total Score: 1 12/17/19 20 11:39 AM EDT documented as of this encounter Care Teams Electronic Game Developer Relationship Specialty Start Date End Date Annie Thomas CNP 40 [place], [place] PCP - General Internal Medicine 11/20/18 12/21/22 Nahid Rider MD 40 [place] [address] [email or web address] PCP - General Internal Medicine 12/22/22 09/03/24 Shemar Mancia PA-C [address] [place] [address] [id number] PCP - General Physician Teacher Emotionally Impaired 09/14/24 Keya Sage MD [address] [place] [address], [address] [place] [address] [email or web address] Obstetrics and Gynecology 10/01/19 documented as of this encounter Additional Source Comments The information contained in this document represents components of the legal health record. It is not the complete legal health record.[facility]
--- OUTSIDE RECORDS SUMMARY | 2025-06-10 19:36 | XMS_ITS | Encounter Summary ---
Author Organization [facility] Address [address] [facility] [address] [place] [address] Phone Care Team Providers Care Production Control Planner Name Role Phone Annie Thomas [facility] Primary Care Provider Keya Sage MD Unavailable [phone] Nahid Rider MD Primary Care Provider Shemar Mancia PA-C Primary Care Provider [phone] Encounter Details Date Type Department Care Team (Late Contact Info) Description 01/02/2022 Procedure Pass Echo [facility] [address] [place] [id number] Social History Tobacco Use Types Packs/Day Years [...] Office Visit [facility] [place] [facility] 40 [place], [place] [phone] Shemar Mancia PA-C 40 [place], [place] [phone] [email or web address] 01/06/2026 7:40 AM EDT Office Visit [facility] [address] [facility] 3rd Floor, [address] [place] [address] Job Sheikh MD [address] [place] [address], [facility] 301 [place], [place] [phone] [email or web address] documented as of this encounter Visit Diagnoses Not on filedocumented in this encounter Additional Health Concerns Assessment Noted Time PHQ-2 Depression Total Score: 1 12/17/19 20 11:39 AM EDT documented as of this encounter Care Teams Production Control Planner Relationship Specialty Start Date End Date Annie Thomas CNP 40 [place] [address] [email or web address] PCP - General Internal Medicine 11/20/18 12/21/22 Nahid Rider MD 40 [place] [address] [email or web address] PCP - General Internal Medicine 12/22/22 09/03/24 Shemar Mancia PA-C 40 [place], [place] [phone] [email or web address] PCP - General Physician It Solutions Architect 09/14/24 Keya Sage MD [address] [place] [address], [address] [place] [address] [email or web address] Obstetrics and Gynecology 10/01/19 documented as of this encounter Additional Source Comments The information contained in this document represents components of the legal health record. It is not the complete legal health record.[facility]
--- OUTSIDE RECORDS SUMMARY | 2025-06-10 19:36 | XMS_ITS | Encounter Summary ---
Author Organization [facility] Address [address] [facility] [address] [place] [address] Phone Care Team Providers Care Statistical Programmer Analyst Name Role Phone Annie Thomas CNP Primary Care Provider Keya Sage MD Unavailable [phone] Nahid Rider MD Primary Care Provider [phone] Shemar Mancia PA-C Primary Care Provider [phone] Encounter Details Date Type Department Care Team (Late st Contact Info) Description 09/20/2020 Ancillary Orders [facility] Internal Medicine 40 [place], [place] [phone] Annie Thomas CNP 40 [place] [address] [email or web address] Breast screening Social History Tobacco Use [...] 07/19/2025 7:20 AM EST Office Visit [facility] 40 [place] [address] Shemar Mancia PA-C 40 [place] [address] 01/06/2026 7:40 AM EDT Office Visit [facility] [address] [place] [address] 3rd Floor, [address] [place], [place] [phone] Job Sheikh MD 22 [facility], [address] [place] [address] [phone] documented as of this encounter Results * [...] There are scattered fibroglandular densities. Annie Thomas SUPERVISOR [facility] EXAMS Final Result documented in this encounter Visit Diagnoses Diagnosis Breast screening Breast screening, unspecified Breast screening Breast screening, unspecified documented in this encounter Additional Health Concerns Assessment Noted Time PHQ-2 Depression Total Score: 1 12/17/19 11:39 AM EDT documented as of this encounter Care Teams Statistical Programmer Analyst Relationship Specialty Start Date End Date Annie Thomas CNP [address] [place] [address] PCP - General Internal Medicine 11/20/18 12/21/22 Nahid Rider MD 40 [place] [address] PCP - General Internal Medicine 12/22/22 09/03/24 Shemar Mancia PA-C 40 [place] [address] [email or web address] PCP - General Physician Senior Licensing Manager 09/14/24 Keya Sage MD [address] [place] [address], [facility] 102 [place] [address] [email or web address] Obstetrics and Gynecology 10/01/19 documented as of this encounter Additional Source Comments The information contained in this document represents components of the legal health record. It is not the complete legal health record.[facility]
--- OUTSIDE RECORDS SUMMARY | 2025-06-10 19:36 | XMS_ITS | Encounter Summary ---
Author Organization [facility] Address [address] [place] [address] Phone Care Team Providers Care Home Service Technician Name Role Phone Keya Sage MD Unavailable [phone] Shemar Mancia PA-C Primary Care Provider [phone] Encounter Details Date Type Department Care Team (Late st Contact Info) Description 09/17/2024 Procedure Pass [facility], Ct Scan - [address] [address] Social History Tobacco Use Types Packs/Day Years [...] Office Visit [facility] Internal Medicine 40 [place], [place] [phone] Shemar Mancia PA-C 40 [place] [address] 01/06/2026 7:40 AM EDT Office Visit [facility] [address] [place] [address] 3rd [facility], [address] [place] [address] [phone] Job Sheikh MD [address] [place] [address], [address] [phone] documented as of this encounter Visit Diagnoses Not on filedocumented in this encounter Additional Health Concerns Assessment Noted Time PHQ-2 Depression Total Score: 0 09/14/19 25 6:05 PM EST documented as of this encounter Care Teams Home Service Technician Relationship Specialty Start Date End Date Shemar Mancia PA-C [address] [place] [address] PCP - General Physician Dialysis Registered Nurse 09/14/24 Keya Sage MD [address] [place] [address], [facility] 102 [place] [address] [email or web address] Obstetrics and Gynecology 10/01/19 documented as of this encounter Additional Source Comments The information contained in this document represents components of the legal health record. It is not the complete legal health record.[facility]
--- OUTSIDE RECORDS SUMMARY | 2025-06-10 19:37 | XMS_ITS | Encounter Summary ---
Author Organization [facility] Address [address] [place] [address] Phone Care Team Providers Care District Manager Major Accounts Sales Name Role Phone Keya Sage MD Unavailable [phone] Shemar Mancia PA-C Primary Care Provider Encounter Details Date Type Department Care Team (Latest Contact Info) Description 02/17/2025 Ancillary Orders [facility] Internal Medicine 40 [place], [place] [phone] Shemar Mancia PA-C 40 [place], [place] [phone] [email or web address] Breast screening (Primary Dx) Social History Tobacco [...] [facility] [place] [facility] 40 [place] [address] Shemar Mancia PA-C 40 [place] [address] 01/06/2026 7:40 AM EDT Office Visit [facility] [address] [place] [address] 3rd Floor, [address] [place] [address] [phone] Job Sheikh MD 22 [facility], [address] [phone] documented as of this encounter Results * [...] documented as of this encounter Care Teams District Manager Major Accounts Sales Relationship Specialty Start Date End Date Shemar Mancia PA-C [address] [place] [address] PCP - General Physician Corporate Travel Agent 09/14/24 Keya Sage MD [address] [place] [address], [address] [place] [address] [email or web address] Obstetrics and Gynecology 10/01/19 documented as of this encounter Additional Source Comments The information contained in this document represents components of the legal health record. It is not the complete legal health record.[facility]
--- OUTSIDE RECORDS SUMMARY | 2025-06-10 19:37 | XMS_ITS | Encounter Summary ---
Author Organization [facility] Address [address] [place] [address] Phone Care Team Providers Care Network Liaison Name Role Phone Keya Sage MD Unavailable [phone] Nahid Rider MD Primary Care Provider [phone] Shemar Mancia PA-C Primary Care Provider [phone] Encounter Details Date Type Department Care Team (Late st Contact Info) Description 08/24/2024 Procedure Pass [facility] - [address] [place] [address] Social History Tobacco Use Types Packs/Day Years [...] Visit [facility] Internal Medicine 40 [place], [place] [phone] Shemar Mancia PA-C 40 [place] [address] [email or web address] 01/06/2026 7:40 AM EDT Office Visit [facility] [address] [place] [address] 3rd Floor, [address] [place] [address] Job Sheikh MD [address] [place] [address], [address] [address] documented as of this encounter Visit Diagnoses Not on filedocumented in this encounter Additional Health Concerns Assessment Noted Time PHQ-2 Depression Total Score: 0 09/14/19 25 6:05 PM EST documented as of this encounter Care Teams Network Liaison Relationship Specialty Start Date End Date Nahid Rider MD [address] [place] [address] PCP - General Internal Medicine 12/22/22 09/03/24 Shemar Mancia PA-C [address] [place] [address] PCP - General Physician In Flight Refueling Craftsman 09/14/24 Keya Sage MD [address] [place] [address], [place] [address] [place] [address] Obstetrics and Gynecology 10/01/19 documented as of this encounter Additional Source Comments The information contained in this document represents components of the legal health record. It is not the complete legal health record.[facility]
--- OUTSIDE RECORDS SUMMARY | 2025-06-10 19:37 | XMS_ITS | Encounter Summary ---
Author Organization [facility] Address [address] [facility] [address] [place] [address] Phone Care Team Providers Care Plc Engineer Name Role Phone Maximus Lucia MD Unavailable Keya Sage MD Unavailable [phone] Helena Cavanaugh OUTSIDE INSTALLATION MACHINIST Unavailable [phone] Diony Whitfield MD Unavailable Jodie Bonilla MD Unavailable Carlitos Zhang MD Unavailable [phone] Davina Varghese MD Unavailable Maximus Lucia MD Primary Care Provider Pcp, Unknown Primary Care Provider UnavailAnnie Holguin [facility] Primary Care Provider Keya Sage MD Unavailable Nahid Rider MD Primary Care Provider Shemar Mancia PA-C Primary Care Provider [phone] Encounter Details Date Type Department Care Team (Late st Contact Info) Description 07/30/2017 Ancillary Orders Virtual Department 30 [place] [address] Maximus Lucia MD [address] [place] [address] Breast screening Social History Tobacco Use Types [...] Description 07/19/2025 7:20 AM EST Office Visit [facility] Internal Medicine 40 [place] [address] Shemar Mancia PA-C 40 [place] [address] [email or web address] 01/06/2026 7:40 AM EDT Office Visit [facility] [address] [place] [address] 3rd Floor, [address] [place] [address] Job Sheikh MD 22 [facility], [address] [place] [address] [email or web address] documented as of this encounter Care Teams Plc Engineer Relationship Specialty Start Date End Date Maximus Lucia MD [address] [place] [address] PCP - General 07/25/17 08/24/18 Pcp, Unknown PCP - General 08/25/18 11/19/18 Annie Thomas CNP 40 [place] [address] PCP - General Internal Medicine 11/20/18 12/21/22 Nahdi Rider MD 40 [place] [address] PCP - General Internal Medicine 12/22/22 09/03/24 Shemar Mancia PA-C [address] [place] [address] PCP - General Physician Vocational Education Professional 09/14/24 Maximus Lucia MD [address] [place] [address] Historical LMR Provider 05/08/17 0 Keya Sage MD [address] [place] [email or web address] Historical LMR Provider 05/08/17 09/24/19 Helena Cavanaugh NP 30 [place] [address] Historical LMR Provider 05/08/17 0 Diony [place] MD [address] [place] [address] Historical LMR Provider 05/08/17 09/24/19 Jodie Bonilla MD [address] [place] [address] [facility], [place] [address] Historical LMR Provider 05/08/17 Carlitos Zhang MD [address] [place] [address] Historical LMR Provider 05/08/17 0 Davina Varghese MD 46 [facility] [address] [place] [address] [email or web address] Historical LMR Provider 05/08/17 09/24/19 Keya Sage MD [address] [place] [address], [facility] 102 [place] [address] [email or web address] Obstetrics and Gynecology 10/01/19 documented as of this encounter Additional Source Comments The information contained in this document represents components of the legal health record. It is not the complete legal health record.[facility]
--- OUTSIDE RECORDS SUMMARY | 2025-06-10 19:37 | XMS_ITS | Encounter Summary ---
Author Organization [facility] Address [address] [facility] [address] [place] [address] Phone Care Team Providers Care Lithographic Press Operator Name Role Phone Maximus Lucia MD Unavailable Keya Sage MD Unavailable Helena Cavanaugh PRIVACY SPECIALIST Unavailable [phone] Diony Whitfield MD Unavailable Jodie Bonilla MD Unavailable Carlitos Zhang MD Unavailable [phone] Davina Varghese MD Unavailable Annie Thomas CONSTRUCTION SALES REPRESENTATIVE Primary Care Provider Keya Sage MD Unavailable Nahid Rider MD Primary Care Provider [phone] Shemar Mancia PA-C Primary Care Provider Encounter Details Date Type Department Care Team (Late st Contact Info) Description 06/09/2019 Ancillary Orders [facility] Internal Medicine [address] [place] [facility] [place] [address] ChenAnnie eknney CNP 40 [place] [address] [email or web address] Breast screening Social History Tobacco [...] Description 07/19/2025 7:20 AM EST Office Visit [facility] Internal Medicine 40 [place] [address] Shemar Mancia PA-C 40 [place] [address] [email or web address] 01/06/2026 7:40 AM EDT Office Visit [facility] [address] [place] [address] 3rd Floor, [address] [place] [address] [phone] Job Sheikh MD [address] [place] [address], [address] [place] [address] [phone] [email or web address] documented as of this encounter Results [...] documented as of this encounter Care Teams Lithographic Press Operator Relationship Specialty Start Date End Date Annie Thomas CNP [address] [place] [address] [email or web address] PCP - General Internal Medicine 11/20/18 12/21/22 Nahid Rider MD [address] [place] [address] PCP - General Internal Medicine 12/22/22 09/03/24 Shemar Mancia PA-C [address] [place] [address] PCP - General Physician Senior Logistics Manager 09/14/24 Maximus Lucia MD [address] [place] [address] Historical LMR Provider 05/08/17 0 Keya Sage MD [address] [place] [address] [email or web address] Historical LMR Provider 05/08/17 09/24/19 Helena Cavanaugh NP [address] [place] [address] Historical LMR Provider 05/08/17 0 Diony Whitfield MD [address] [place] [address] [email or web address] Historical LMR Provider 05/08/17 09/24/19 Jodie Bonilla MD [address] [place] [address] [facility], [place] [address] Historical LMR Provider 05/08/17 Carlitos Zhang MD [address] [place] [address] Historical LMR Provider 05/08/17 0 Davina Varghese MD [address] [address] [email or web address] Historical LMR Provider 05/08/17 09/24/19 Keya Sage MD [address] [place] [address], [address] [place] [address] [email or web address] Obstetrics and Gynecology 10/01/19 documented as of this encounter Additional Source Comments The information contained in this document represents components of the legal health record. It is not the complete legal health record.[facility]
--- OUTSIDE RECORDS SUMMARY | 2025-06-10 19:37 | XMS_ITS | Encounter Summary ---
Author Organization [facility] Address [address] [place] [address] Phone Care Team Providers Care Supervisor Nuclear Medicine Name Role Phone Keya Sage MD Unavailable [phone] Shemar Mancia PA-C Primary Care Provider Encounter Details Date Type Department Care Team (Late st Contact Info) Description 10/05/2024 Procedure Pass [facility], [address] [address] Social History Tobacco Use Types Packs/Day Years [...] Description 07/19/2025 7:20 AM EST Office Visit [facility] Internal Medicine 40 [place], [place] [phone] Shemar Mancia PA-C [address] [place] [email or web address] 01/06/2026 7:40 AM EDT Office Visit [facility] [address] [place] [address] 3rd [facility], [address] [place] [address] [phone] Job Sheikh MD [address] [place] [address], [address] [phone] documented as of this encounter Visit Diagnoses Not on filedocumented in this encounter Additional Health Concerns Assessment Noted Time PHQ-2 Depression Total Score: 0 09/14/19 25 6:05 PM EST documented as of this encounter Care Teams Supervisor Nuclear Medicine Relationship Specialty Start Date End Date Shemar Mancia PA-C [address] [place] [email or web address] PCP - General Physician Social Media Strategist 09/14/24 Keya Sage MD [address] [place] [address], [facility] 102 [place] [address] [email or web address] Obstetrics and Gynecology 10/01/19 documented as of this encounter Additional Source Comments The information contained in this document represents components of the legal health record. It is not the complete legal health record.[facility]
--- OUTSIDE RECORDS SUMMARY | 2025-06-10 19:37 | XMS_ITS | Clinical Summary ---
Author Organization [facility] Address [address] [employer] [facility] [place], [place] [address] [place] [phone] Phone Care Team Providers Care Heading And Priming Tool Setter Name Role Phone Keya Sage MD Unavailable [phone] Shemar Mancia PA-C Primary Care Provider [phone] Allergies No known active allergies Medications levonorgestreL [...] imaging from May [address] [facility]. If on comparison current nodules are essentially [...] years given contraceptive effectiveness; will discuss with CASH MANAGEMENT SPECIALIST. Chest pain 12/17/2017 09/17/2024 Assessment & Plan [...] Department Care Team Description 03/29/2025 Orders Only [facility] Medicine [address] [place] [address] Provider, MD Ayaz from Last 3 [...] high school, GED, job training, learning the Latvian language, technical skills, or developing parenting skills)? [...] Description 07/19/2025 7:20 AM EST Office Visit [facility] [place] [facility] [address] [place] [address] Shemar Mancia PA-C [address] [place] [address] 01/06/2026 7:40 AM EDT Office Visit [facility] [address] [place] [address] 3rd Floor, [address] [place] [address] Job Sheikh MD [address] [place] [address], [address] [place] [address] Health Maintenance Due Date Last Done Comments [...] this topic Medical Devices Implanted Type Area Blasting Clay Miner Device Identifier Shelf Expiration Date Model / Serial / Lot Device Contraceptive 52mg Iud Mirena - Must Order In Multiples Of 5 - [id number] Implanted:Qty: 1 on 03/02/2022 by Mamta Bowles MD at [facility] N/A: Uterus [facility] 05/21/2024 [id number] / / [id number] Procedures Procedure Name Priority Date/Time Associated Diagnosis [...] EDT) SODIUM 140 133 - 146 mmol/L [facility] POTASSIUM 4.6 3.3 - 5.1 mmol/L [facility] CHLORIDE 104 96 - 108 mmol/L [facility] CO2 27 21 - 35 mmol/L [facility] BUN 13 6 - 19 mg/dL [facility] CREATININE 0.70 0.5 - 1.5 mg/dL [facility] GLUCOSE 105(H) 70 - 99 mg/dL [facility] ALBUMIN 4.3 3.9 - 4.8 g/dL [facility] TOTAL PROTEIN 7.7 6.5 - 8.0 g/dL [facility] CALCIUM 9.6 8.4 - 10.3 mg/dL [facility] ALKALINE PHOSPHATASE 95 39 - 117 U/L [facility] TOTAL BILIRUBIN 0.4 0.0 - 1.2 mg/dL [facility] AST 26 0 - 37 U/L [facility] ALT 34 0 - 40 U/L [facility] GLOBULIN 3.4 1 - 4.8 g/dL [facility] EGFR 101 >59 mL/min/1.7 3m2 [facility] Comment:Estimated glomerular filtration rate calculated using the CKD-EPI refit equation. ANION GAP 14 10 - 20 mmol/L [facility] Blood 01/04/2025 8:54 AM EDT 01/04/2025 8:59 AM EDT us Shemar Mancia PA-C LAB BLOOD BKR ORDERABLES Lanette l Result Performing Organization Address City/[facility] Co de Phone Number [address] [address] * Lipid panel (01/04/2025 8:54 AM EDT) HDL 54 mg/dL [facility] Comment: Interpretation <40 mg/dL: Low HDL cholesterol (major risk factor for CHD) Greater than or equal to 60 mg/dL: High HDL cholesterol ( negative risk factor for CHD) HDL - cholesterol is affected by a number of factors, e.g. smoking, excerise, hormones, sex and age. CHOLESTEROL 194 0 - 240 mg/dL [facility] TRIGLYCERIDES 135 30 - 160 mg/dL [facility] LDL 113 50 - 129 mg/dL [facility] Comment: LDL levels in terms of risk for coronary heart disease: <100 mg/dL: Optimal 100-129 mg/dL: Near or above optimal 130-159 mg/dL: Borderline high 160-189 mg/dL: High >190 mg/dL: Very High CARDIAC RISK RATIO 3.6 3.3 - 4.4 [facility] Blood 01/04/2025 8:54 AM EDT 01/04/2025 8:59 AM EDT us Shemar Mancia PA-C LAB BLOOD BKR ORDERABLES Lanette l Result Performing Organization Address City/State/[facility] Co de Phone Number [address] [address] * Pap Test (09/01/2024 12:00 AM EST) Report [address] [address] Supervisor [employer]: Mino Pollard MD CASH MANAGEMENT SPECIALIST Cytology Report FINAL DIAGNOSIS A. PAP SMEAR (THIN PREP) CE: SPECIMEN ADEQUACY: Satisfactory for evaluation; transformation zone present. INTERPRETATION: NEGATIVE FOR INTRAEPITHELIAL LESION OR MALIGNANCY. This specimen was analyzed by the automated ThinPrep Imaging System (ProofPilot.) and manually rescreened by a caterers helper and/or pathologist. Due to blood, the specimen [...] by real-time polymerase chain reaction (PCR) at [facility], [address] [place] [address] using the FDA-approved BD Onclarity9 HPV Assay with extended genotyping. Uses of the assay in scenarios other than those approved by the FDA should be considered off-label use. The accuracy and precision of this test for all other off-label specimen sources has been verified in the Cytopathology Laboratory of the [facility] and has not been cleared or [...] : 1970 (Age: 54) Sex: F Institution: [facility] Location: [facility] Date of Collection: 09/01/2024 Date of Reported: 09/07/2024 10:54 Results to: Millie Davalos [facility] Final Diagnosis A. PAP SMEAR (THIN PREP) CE: SPECIMEN ADEQUACY: Satisfactory for evaluation; transformation zone present. INTERPRETATION: NEGATIVE FOR INTRAEPITHELIAL LESION OR MALIGNANCY. This specimen was analyzed by the automated ThinPrep Imaging System (ProofPilot.) and manually rescreened by a caterers helper and/or pathologist. Due to blood, the specimen was reprocessed with 10% Glacial Acetic Acid. [facility] Results\Inte rpretation A. PAP SMEAR (THIN PREP) CE: High-risk HPV Panel w/ extended genotyping NEG HPV 16-NEG HPV 18-NEG HPV 45-NEG HPV 33/58-NEG HPV 31-NEG HPV 56/59/66-NEG HPV 51-NEG HPV 52-NEG HPV 35/39/68-NEG Performed by real-time polymerase chain reaction (PCR) at [facility], [address] [place] [address] using the FDA-approved BD Onclarity HPV Assay with extended genotyping. Uses of the assay in scenarios other than those approved by the FDA should be considered off-label use. The accuracy and precision of this test for all other off-label specimen sources has been verified in the Cytopathology Laboratory of the [facility] and has not been cleared or approved by the U.S. Food and Drug Administration. Clinical correlation is advised. The assay assesses the E6/E7 DNA target and utilizes human beta globin as an internal control. Cytology and HPV testing are screening assays and should not be used as the sole means of detecting cancer. False-positives and false-negatives can occur. [facility] Conversion Type (Conversion Source) 09/01/2024 09/02/2024 9:15 AM EST us Millie Darling MD CYTOLOGY ORDER CLAIRE Edited Result - Final [facility] [address] [place] [address] * COLONOSCOPY FOR RESULT ENTRY ONLY (01/27/2020) us Historical Provider HEALTH MAINTENANCE Final Result from Last 3 Months or Most Recently Relevant to Health Maintenance Insurance O O O O O O O HMO HMO Member Subscriber Plan / Payer (Ef fective 2016-Present) Name:FernandoShamar swansonll Relation to Subscriber:Spouse Name:DEEPTI MONROE Date of :1966 (Home) Address: [address] [place] [address] Payer ID:Not on file Type:O Address: [place] [id number] Care Teams Heading And Priming Tool Setter Relationship Specialty Start Date End Date Shemar Mancia PA-C [address] [place] [phone] [email or web address] PCP - General Physician Plan Rep 09/14/24 Keya Sage MD [address] [place] [address], [facility] [address] [place] [address] [email or web address] Obstetrics and Gynecology 10/01/19 Additional Source Comments The information contained in this document represents components of the legal health record. It is not the complete legal health record.[facility]
--- NOTE | 2025-06-11 12:19 | HO.ANESPROP2 ---
Documented by User: Apryl Jackson NP 06/11/25 12:20 HPI - Anesthesia Eval Consult details Narrative: 55 yr old female for colonoscopy [facility] Past Medical History Medical History (Updated 06/14/25 @ 11:47 by Ro De León RN) Low left ventricular ejection fraction Liver problem Surgical History Surgical History (Updated 06/14/25 @ 11:55 by Ro De León RN) H/O knee surgery Hx of tonsillectomy History of cholecystectomy History of esophagogastroduodenoscopy (EGD) H/O colonoscopy Social History Social History Alcohol intake: current Alcohol intake frequency: holidays/special occasions only Patient Tobacco Use Status: Never used Tobacco Use of substances other than those prescribed or required for medical reasons: No Are you DNR?: No Advance Directives: No Advance Directives Information Provided: Yes Patient : No : No Meds Allergies Allergy/AdvReac Type Severity Reaction Status Date / Time No Known Allergies Allergy Verified 09/11/24 21:55 Home Medications ?Medication ?Instructions ?Recorded ?Confirmed ?Last Taken ?Type metoprolol succinate 25 mg 25 mg PO DAILY 06/11/25 06/11/25 Unknown History tablet,extended release 24 hr olmesartan 20 mg tablet 20 mg PO DAILY 06/11/25 06/11/25 Unknown History Documented by User: Morales Velasquez MD 06/14/25 12:31 [facility] Past Medical History Medical History (Updated 06/14/25 @ 11:47 by Ro De León RN) Low left ventricular ejection fraction Liver problem Cognitive capacity: normal Functional capacity: independent ambulation Family History Family history of problems with anesthesia: No Surgical History Surgical History (Updated 06/14/25 @ 11:55 by Ro De León RN) H/O knee surgery Hx of tonsillectomy History of cholecystectomy History of esophagogastroduodenoscopy (EGD) H/O colonoscopy History of Problems with Anesthesia: No Social History Social History Alcohol intake: current Alcohol intake frequency: holidays/special occasions only Patient Tobacco Use Status: Never used Tobacco Use of substances other than those prescribed or required for medical reasons: No Are you DNR?: No Advance Directives: No Advance Directives Information Provided: Yes Patient : No : No Meds Allergies Allergy/AdvReac Type Severity Reaction Status Date / Time No Known Allergies Allergy Verified 09/11/24 21:55 Home Medications ?Medication ?Instructions ?Recorded ?Confirmed ?Last Taken ?Type metoprolol succinate 25 mg 25 mg PO DAILY 06/11/25 06/11/25 Unknown History tablet,extended release 24 hr olmesartan 20 mg tablet 20 mg PO DAILY 06/11/25 06/11/25 Unknown History Exam Exam Date and Time: 06/14/25 Airway Mallampati Class: II TM Dist: >3cm Neck ROM: Full Loose/Missing/Broken Teeth: No Heart: normal Lungs: normal Other: normal Assessment and Plan Assessment Anesthesia Assessment: Anesthesia Plan Discussed Final Anesthetic Review Family History of Problems with Anesthesia: No History of Problems with Anesthesia: No NPO: Yes ASA Class: II Final Preanesthetic Review: No Changes in Pt Med Stat, Meds/Allgs Chart Reviewed, Consent Obtained/Reviewed and Anes Risks/Benef Reviewed Patient Risk: Low Procedure Risk: Low Anesthetic Plan Anesthetic Plan: MAC: Disposition: Standard PACU
[2025-06-14 11:58] VITALS: BMI 40.1
[2025-06-14 12:00] VITALS: BP 134/69; PULSE 71; RESP 16; TEMP 36.4; O2SAT 97
[2025-06-14] MEDS: Lactated Ringers 1,000 ML 100 ML IVCONT (12:16)
[2025-06-14 14:09] VITALS: BP 104/62; PULSE 73; RESP 16; TEMP 36.5; O2SAT 96
--- NOTE | 2025-06-14 14:12 | PM.OP ---
Brief Operative Note Date of Service: 06/14/25 Pre-op diagnosis: Screening Post-op diagnosis: other (Diverticulosis) Procedure: Colonoscopy to the cecum Surgeon: Ethan Valente MD Anesthesia: MAC Was an [employer] Former Brace End used for this Procedure?: No Estimated blood loss (mL): 0 Pathology: none sent Condition: stable Disposition: PACU
[2025-06-14 14:20] VITALS: BP 125/71; PULSE 73; RESP 16; TEMP 36.1; O2SAT 98
--- NOTE | 2025-06-15 00:27 | OP_ITS ---
DATE OF SERVICE: 06/14/2025 SURGEON: Ethan Valente MD INDICATIONS: The patient presents for evaluation of personal history of tubular adenoma of the colon, family history of colon cancer, and discussion of colorectal cancer screening. Full consent was obtained from her for this, including risks of bleeding and perforation. PREOPERATIVE DIAGNOSIS: POSTOPERATIVE DIAGNOSIS: PROCEDURE PERFORMED: Colonoscopy to the cecum. ESTIMATED BLOOD LOSS: COMPLICATIONS: ANESTHESIA: Medication used, monitored anesthesia care. ASSISTANTS: SPECIMENS: PREOPERATIVE DIAGNOSES: Colorectal cancer screening, family history of colon cancer, personal history of colon polyp. POSTOPERATIVE DIAGNOSES: Colorectal cancer screening, family history of colon cancer, personal history of colon polyp, diverticulosis and internal and external hemorrhoids. DESCRIPTION OF PROCEDURE: The patient was placed in the left lateral decubitus position. The digital rectal exam revealed some external hemorrhoids. The Olympus video pediatric colonoscope was entered into the rectum and advanced easily to the cecum. Once in the cecum, I did identify normal-appearing cecal pouch with appendiceal orifice and a normal-appearing ileocecal valve. The entire cecum and ileocecal valve appeared normal. The scope was then slowly withdrawn, assessing all mucosal surfaces carefully. Preparation was excellent. I did not visualize any sign of polyps, colitis, nor angiodysplasia. There was a mild amount of sigmoid diverticulosis. There were also a few diverticula noted in the ascending colon. In the rectum, scope was retroflexed, visualizing some internal hemorrhoids, but no other pathology. The rectal mucosa appeared normal. Scope was straightened and withdrawn from the patient. She tolerated the procedure well and was returned to the recovery area in stable condition. IMPRESSION: 1. Diverticulosis. 2. Internal and external hemorrhoids. PLAN: Given her family history of colon cancer in her mother and her personal history of a tubular adenoma. I would recommend a followup coloscopy in 5 years for further screening. She will otherwise see me on a p.r.n. basis. MD RONNA Hutchinson/KASHIF / [phone]
== END 2025-06-14 14:43 | disposition home or self-care (01) ==
PROVIDERS: PCP Physician Assistant Surgical; Visit Provider Internal Medicine
PROC: 0DJD8ZZ Inspection of Lower Intestinal Tract, Via Natural or Artificial Opening Endoscopic (ICD-10-PCS; CPT 45378; principal; 2025-06-14 12:40)
DX: Z12.11 Encounter for screening for malignant neoplasm of colon (principal); Z86.0101 Personal history of adenomatous and serrated colon polyps; Z80.0 Family history of malignant neoplasm of digestive organs; K59.00 Constipation, unspecified; K57.30 Diverticulosis of large intestine without perforation or abscess without bleeding; K64.4 Residual hemorrhoidal skin tags; K64.8 Other hemorrhoids
CPT/HCPCS: 45378; J2003; J2704; J3010